=== PATIENT | male | born 1985 | race Caucasian/White ===

== ENCOUNTER 2017-01-10 00:20 | Emergency (ER) | payer OTHER ==
--- NOTE | 2017-01-10 00:29 | PDOC ---
History of Present Illness - General History Source: Patient Exam Limitations: No Limitations - History of Present Illness Initial Comments: 01/10/17 02:10 The patient is a 31 year old male with significant past medical history of asthma and polysubstance abuse (heroin and cocaine) who presents to the ED for overdose. Patient reports he has been sober for a period of time and prior to arrival he sniffed two bags of heroin. He was found by his brother. States last thing he remembers was his brother walking towards him and then woke up in the ER. Patient only has complaints of mild nausea, but no vomiting. The patient denies fever, chills, diaphoresis, cough, SOB, chest pain, palpitations, abdominal pain, and diarrhea. Allergies: haloperidol, haloperidol lactate Social History: No alcohol, tobacco, or drug use reported. Past Surgical History: LT orbital fracture 2011 PCP: Dr. Suzette Vizcaino <Gena Fernandez - Last Filed: 01/10/17 02:11> <Shyam Corea - Last Filed: 01/10/17 06:12> - General Chief Complaint: Overdose Stated Complaint: DRUG OD Past History <Gena Fernandez - Last Filed: 01/10/17 02:11> - Past Medical History Asthma: Yes Cardiac Disorders: No COPD: No Diabetes: No GI Disorders: No Disorders: No HTN: No Kidney Stones: No Suicide Attempt (Hx): No Seizures: Yes - Surgical History Abdominal Surgery: No Appendectomy: No Cardiac Surgery: No Cholecystectomy: No Gastric Stapling: No GI Surgery: No Lung Surgery: No Neurologic Surgery: Yes (LT ORBITAL FRACTURE 2011 - TRAUMA) Orthopedic Surgery: No - Psycho/Social/Smoking Cessation Hx Anxiety: No Suicidal Ideation: No Smoking Status: Yes Smoking History: Never smoked Have you smoked in the past 12 months: Yes Number of Cigarettes Smoked Daily: 20 'Breaking Loose' booklet given: 02/08/14 Hx Alcohol Use: No Drug/Substance Use Hx: No Substance Use Type: Cocaine, Heroin, Prescribed Hx Substance Use Treatment: Yes (attends [facility]) <Shyam Corea - Last Filed: 01/10/17 06:12> - Past Medical History Allergies/Adverse Reactions: Allergies Allergy/AdvReac Type Severity Reaction Status Date / Time haloperidol [From Haldol] AdvReac Severe Verified 01/10/17 04:36 haloperidol lactate AdvReac Severe Verified 01/10/17 04:36 [From Haldol] Review of Systems - Review of Systems Able to Perform ROS?: Yes Comments:: 01/10/17 02:10 GENERAL/CONSTITUTIONAL: No fever or chills. No weakness. HEAD, EYES, EARS, NOSE AND THROAT: No change in vision. No ear pain or discharge. No sore throat. CARDIOVASCULAR: No chest pain or shortness of breath. RESPIRATORY: No cough, wheezing, or hemoptysis. GASTROINTESTINAL: +nausea No vomiting, diarrhea or constipation. GENITOURINARY: No dysuria, frequency, or change in urination. MUSCULOSKELETAL: No joint or muscle swelling or pain. No neck or back pain. SKIN: No rash NEUROLOGIC: No headache, vertigo, loss of consciousness, or change in strength/ sensation. ENDOCRINE: No increased thirst. No abnormal weight change. HEMATOLOGIC/LYMPHATIC: No anemia, easy bleeding, or history of blood clots. ALLERGIC/IMMUNOLOGIC: No hives or skin allergy. <Gena Fernandez - Last Filed: 01/10/17 02:11> *Physical Exam - Vital Signs Last Vital Signs Temp Pulse Resp BP Pulse Ox 98.1 F 82 14 111/70 89 L 01/10/17 00:27 01/10/17 00:27 01/10/17 00:27 01/10/17 00:27 01/10/17 00:27 - Physical Exam Comments: 01/10/17 02:10 GENERAL: Awake, alert, and fully oriented, in no acute distress HEAD: No signs of trauma EYES: PERRLA, EOMI, sclera anicteric, conjunctiva clear ENT: Auricles normal inspection, hearing grossly normal, nares patent, oropharynx clear without exudates. Moist mucosa NECK: Normal ROM, supple, no lymphadenopathy, JVD, or masses LUNGS: Breath sounds equal, clear to auscultation bilaterally. No wheezes, and no crackles HEART: Regular rate and rhythm, normal S1 and S2, no murmurs, rubs or gallops ABDOMEN: Soft, nontender, normoactive bowel sounds. No guarding, no rebound. No masses EXTREMITIES: Normal range of motion, no edema. No clubbing or cyanosis. No cords, erythema, or tenderness NEUROLOGICAL: Cranial nerves II through XII grossly intact. Normal speech, normal gait SKIN: Warm, Dry, normal turgor, no rashes or lesions noted. <Gena Fernandez - Last Filed: 01/10/17 02:11> ED Treatment Course - Medications Given in the ED: ED Medications Discontinued Medications Generic Name Dose Route Start Last Admin Trade Name Tra PRN Reason Stop Dose Admin Ondansetron HCl 8 mg 01/10/17 01:54 01/10/17 01:57 Zofran Odt - SL 01/10/17 01:55 8 mg ONCE ONE Administration <Gena Fernandez - Last Filed: 01/10/17 02:11> *DC/Admit/Observation/Transfer - Attestations Scribe Attestion: 01/10/17 02:10 Documentation prepared by Gena Fernandez, acting as medical staff services manager for Shyam Corea MD, MD <Gena Fernandez - Last Filed: 01/10/17 02:11> - Discharge Dispostion Admit: No Decision to Admit order Date/Time: 01/10/17 06:09 <Shyam Corea - Last Filed: 01/10/17 06:12> Diagnosis at time of Disposition: Opiate overdose Qualifiers: Encounter type: initial encounter Injury intent: accidental or unintentional Qualified Code(s): T40.601A - Poisoning by unspecified narcotics, accidental ( unintentional), initial encounter - Discharge Dispostion Disposition: HOME Condition at time of disposition: Good - Referrals Referrals: Suzette Vizcaino [Primary Care Provider] - - Patient Instructions Additional Instructions: Please follow up with the PMD within the next 48 hours. Please seek help for your drug dependency.
[2017-01-10 00:30] VITALS: TEMP 98.1; BMI 33.4
[2017-01-10] MEDS ORDERED: ONDANSETRON *ODT* 4 MG TABLET SL ONE (01:54)
[2017-01-10] MEDS ORDERED: ONDANSETRON *ODT* 4 MG TABLET ONE (01:56)
[2017-01-10] MEDS ORDERED: CYCLOBENZAPRINE HCL 10 MG TABLET (FP) PO ONE (04:59)
[2017-01-10] MEDS ORDERED: CYCLOBENZAPRINE HCL 10 MG TABLET (FP) ONE (05:10)
[2017-01-10 06:22] VITALS: BP 123/80; PULSE 88
== END 2017-01-10 06:53 | disposition home or self-care (01) ==
LOC: JER 00:20
DX: T40.1X1A Poisoning by heroin, accidental (unintentional), initial encounter (principal); R11.0 Nausea; Y92.018 Other place in single-family (private) house as the place of occurrence of the external cause
CPT/HCPCS: 99282-25

== ENCOUNTER 2017-06-01 18:49 | Emergency (ER) | payer OTHER ==
[2017-06-01 18:54] VITALS: BP 110/50; PULSE 113; TEMP 98.8; BMI 32.8
--- NOTE | 2017-06-01 19:32 | PDOC ---
History of Present Illness - General Chief Complaint: Redness To Affected Area Stated Complaint: PAIN. ACUTE Time Seen by Provider: 06/01/17 19:23 History Source: Patient Exam Limitations: No Limitations - History of Present Illness Severity: Yes: mild Location: reports: none, extremities Past History - Travel Traveled outside of the country in the last 30 days: No Close contact w/someone who was outside of country & ill: No - Past Medical History Allergies/Adverse Reactions: Allergies Allergy/AdvReac Type Severity Reaction Status Date / Time haloperidol [From Haldol] AdvReac Severe Verified 06/01/17 18:54 haloperidol lactate AdvReac Severe Verified 06/01/17 18:54 [From Haldol] Asthma: Yes Cardiac Disorders: No COPD: No Diabetes: No GI Disorders: No Disorders: No HTN: No Kidney Stones: No Psychiatric Problems: Yes (ADHD) Suicide Attempt (Hx): No Seizures: Yes (DUE TO CLONOPIN WITHDRAWAL) - Surgical History Abdominal Surgery: No Appendectomy: No Cardiac Surgery: No Cholecystectomy: No Gastric Stapling: No GI Surgery: No Lung Surgery: No Neurologic Surgery: Yes (LT ORBITAL FRACTURE 2012 - TRAUMA) Orthopedic Surgery: No - Psycho/Social/Smoking Cessation Hx Anxiety: No Suicidal Ideation: No Smoking Status: Yes Smoking History: Current every day smoker Have you smoked in the past 12 months: Yes Number of Cigarettes Smoked Daily: 20 Information on smoking cessation initiated: Yes 'Breaking Loose' booklet given: 06/01/17 Hx Alcohol Use: No Drug/Substance Use Hx: No Substance Use Type: Marijuana Hx Substance Use Treatment: Yes (attends [facility]) Review of Systems - Review of Systems Able to Perform ROS?: Yes Is the patient limited French proficient: Yes Constitutional: Yes: Symptoms Reported, See HPI, Malaise. No: Fever, Loss of Appetite HEENTM: No: Symptoms Reported *Physical Exam - Vital Signs Last Vital Signs Temp Pulse Resp BP Pulse Ox 98.8 F 113 H 20 110/50 96 06/01/17 18:50 06/01/17 18:50 06/01/17 18:50 06/01/17 18:50 06/01/17 18:50
[2017-06-01] MEDS ORDERED: ACETAMINOPHEN 1000 MG/100 ML VIAL (NON FORMULARY) IVPB ONE ×2 (20:48→20:51)
[2017-06-01] MEDS ORDERED: ACETAMINOPHEN INJECTION 100 ML IVPB ONE (21:02)
[2017-06-01] MEDS ORDERED: CLINDAMYCIN 600MG PREMIX IVPB 50 ML IVPB ONE (21:24)
[2017-06-01] MEDS ORDERED: VANCOMYCIN 1,000 MG in DEXTROSE 5%-WATER - 250 ML IVPB ONE (21:24)
--- NOTE | 2017-06-01 21:37 | PDOC ---
History of Present Illness - History of Present Illness Initial Comments: 06/01/17 21:37 The patient is a 31 year old male with significant past medical history of asthma, HIV, former polysubstance abuse (4 months without use, currently in outpatient rehab) who presents to the ED for evaluation of a painful left forearm abscess for 3 days. The patient reports being seen at [facility] ED yesterday where he received IV antibiotics and checked out after having a miserable experience. He reports a recent admission at [facility] (accepted by Dr. Baron De Jesus, Hand Surgeon, as per the request of Dr. Vizcaino), and discharged on May 09 for an abscess on his proximal left thumb obtained after collecting wood for his fireplace. The patient denies fever, chills, diaphoresis, cough, SOB, chest pain, palpitations, abdominal pain, and diarrhea. Allergies: haloperidol, haloperidol lactate Social History: No alcohol, tobacco, or drug use reported. Past Surgical History: LT orbital fracture 2011 PCP: Dr. Suzette Vizcaino <Ese Jimenez - Last Filed: 06/01/17 21:37> <Alyssa Archer - Last Filed: 06/02/17 03:49> - General Chief Complaint: Redness To Affected Area Stated Complaint: PAIN. ACUTE Time Seen by Provider: 06/01/17 19:23 Past History <Ese Jimenez - Last Filed: 06/01/17 21:37> - Past Medical History Asthma: Yes Cardiac Disorders: No COPD: No Diabetes: No GI Disorders: No Disorders: No HTN: No Kidney Stones: No Psychiatric Problems: Yes (ADHD) Suicide Attempt (Hx): No Seizures: Yes (DUE TO CLONOPIN WITHDRAWAL) - Surgical History Abdominal Surgery: No Appendectomy: No Cardiac Surgery: No Cholecystectomy: No Gastric Stapling: No GI Surgery: No Lung Surgery: No Neurologic Surgery: Yes (LT ORBITAL FRACTURE 2011 - TRAUMA) Orthopedic Surgery: No - Psycho/Social/Smoking Cessation Hx Anxiety: No Suicidal Ideation: No Smoking Status: Yes Smoking History: Current every day smoker Have you smoked in the past 12 months: Yes Number of Cigarettes Smoked Daily: 20 Information on smoking cessation initiated: Yes 'Breaking Loose' booklet given: 06/01/17 Hx Alcohol Use: No Drug/Substance Use Hx: No Substance Use Type: Marijuana Hx Substance Use Treatment: Yes (attends [facility]) <ArcherAlyssa - Last Filed: 06/02/17 03:49> - Past Medical History Allergies/Adverse Reactions: Allergies Allergy/AdvReac Type Severity Reaction Status Date / Time haloperidol [From Haldol] AdvReac Severe Verified 06/02/17 00:02 haloperidol lactate AdvReac Severe Verified 06/02/17 00:02 [From Haldol] Home Medications: Ambulatory Orders Buprenorphine HCl/Naloxone HCl [Suboxone 8 mg-2 mg Sl Tablets] 1 tablet SL TID 06/01/17 Dextroamphetamine/Amphetamine [Adderall 5 mg Tablet] 5 mg PO ASDIR 06/01/17 Dextroamphetamine/Amphetamine [Adderall Xr 15 mg Capsule] 15 mg PO DAILY Emtricitabine/Tenofovir [Truvada] 1 tab PO DAILY 06/01/17 Raltegravir [Isentress -] 0 mg PO BID 06/01/17 Review of Systems - Review of Systems Able to Perform ROS?: Yes Comments:: 06/01/17 21:37 GENERAL/CONSTITUTIONAL: No fever or chills. No weakness. HEAD, EYES, EARS, NOSE AND THROAT: No change in vision. No ear pain or discharge. No sore throat. CARDIOVASCULAR: No chest pain or shortness of breath. RESPIRATORY: No cough, wheezing, or hemoptysis. GASTROINTESTINAL: No nausea, vomiting, diarrhea or constipation. GENITOURINARY: No dysuria, frequency, or change in urination. MUSCULOSKELETAL: No joint or muscle swelling or pain. No neck or back pain. SKIN: (+) painful abscess to left forearm. No rash NEUROLOGIC: No headache, vertigo, loss of consciousness, or change in strength/ sensation. ENDOCRINE: No increased thirst. No abnormal weight change. HEMATOLOGIC/LYMPHATIC: No anemia, easy bleeding, or history of blood clots. ALLERGIC/IMMUNOLOGIC: No hives or skin allergy. <Ese Jimenez - Last Filed: 06/01/17 21:37> *Physical Exam - Vital Signs Last Vital Signs Temp Pulse Resp BP Pulse Ox 98.8 F 113 H 20 110/50 96 06/01/17 18:50 06/01/17 18:50 06/01/17 18:50 06/01/17 18:50 06/01/17 18:50 - Physical Exam Comments: 06/01/17 21:39 GENERAL: Awake, alert, and fully oriented, in no acute distress HEAD: No signs of trauma EYES: PERRLA, EOMI, sclera anicteric, conjunctiva clear ENT: Auricles normal inspection, hearing grossly normal, nares patent, oropharynx clear without exudates. Moist mucosa NECK: Normal ROM, supple, no lymphadenopathy, JVD, or masses LUNGS: Breath sounds equal, clear to auscultation bilaterally. No wheezes, and no crackles HEART: Regular rate and rhythm, normal S1 and S2, no murmurs, rubs or gallops ABDOMEN: Soft, nontender, normoactive bowel sounds. No guarding, no rebound. No masses EXTREMITIES: Normal range of motion, no edema. No clubbing or cyanosis. No cords, erythema, or tenderness NEUROLOGICAL: Cranial nerves II through XII grossly intact. Normal speech, normal gait SKIN: (+) abscess to the center of the volar aspect of left forearm is 1.5 cm in diameter with surrounding 5cm area erythema. There is also an old, healing abscess cellulitis at lateral base of left thumb. Warm, Dry, normal turgor, <Ese Jimenez - Last Filed: 06/01/17 21:37> - Vital Signs Last Vital Signs Temp Pulse Resp BP Pulse Ox 98.8 F 113 H 20 110/50 96 06/01/17 18:50 06/01/17 18:50 06/01/17 18:50 06/01/17 18:50 06/01/17 18:50 <Alyssa Archer - Last Filed: 06/02/17 03:49> ED Treatment Course - RADIOLOGY Radiology Studies Ordered: Category Date Time Status CHEST X-RAY PORTABLE* [RAD] Stat Radiology 06/01/17 20:40 Ordered <Alyssa Archer - Last Filed: 06/02/17 03:49> Medical Decision Making - Medical Decision Making 06/01/17 20:38 Dr. Vizcaino ([phone]) was called via phone answering service at 20:38 and I was connected with the resident physician covering for Dr. Vizcaino at this time, Dr. Cararsco, at 20:41. The patients case was discussed and Dr. Carrasco states he will inform Dr. Vizcaino and have her call the ED. 06/01/17 21:06 Dr. Vizcaino called the ED to discuss this patients case. Dr. Vizcaino informed me that her last patient encounter with this patient was in mid-April before his admission to [facility]. She reports there was concern for compartment syndrome and had the orthopedic hand surgeon, Dr. Baron De Jesus, accept the patients admission since her privileges are only at [facility]. Dr. Vizcaino also states she does not know the patient to be an IV drug user. <Ese Jimenez - Last Filed: 06/01/17 21:37> - Medical Decision Making 06/02/17 03:45 Pt comes with abscess and cellulitis to his left forearm. He has HIV and takes Truvada and Isentress. Pt recently had a spider bite to his left hand/thumb and it resulted in a compartment syndrome. His PMD at the clinic in [place] sent him to [facility] for admission and treatment by ortho hand docs. Pt was hospitalized for a week in April and he was sent home with abx. Pt is on suboxone. He likely has MRSA and denies any skin popping of drugs as he states that he has been clean for years. 06/02/17 03:48 Pt refusing blood draw. He wants to go home and get his stuff and sign AMA and return later. <Alyssa Archer - Last Filed: 06/02/17 03:49> *DC/Admit/Observation/Transfer - Attestations Scribe Attestion: 06/01/17 21:40 Documentation prepared by Ese Jimenez, acting as medical practice assistant for Alyssa Archer MD <Ese Jimenez - Last Filed: 06/01/17 21:37> <Alyssa Archer - Last Filed: 06/02/17 03:49> Diagnosis at time of Disposition: Cellulitis - Discharge Dispostion Disposition: AGAINST MEDICAL ADVICE - Referrals Referrals: Suzette Vizcaino [Primary Care Provider] -
--- NOTE | 2017-06-02 03:30 | PN ---
Teaching Attending Note ATTENDING PHYSICIAN STATEMENT I saw and evaluated the patient. I reviewed the resident's note and discussed the case with the resident. I agree with the resident's findings and plan as documented. SUBJECTIVE: OBJECTIVE: ASSESSMENT AND PLAN:
--- NOTE | 2017-06-02 21:35 | EKG ---
Test Reason : Blood Pressure : / mmHG Vent. Rate : 083 BPM Atrial Rate : 083 BPM P-R Int : 170 ms QRS Dur : 084 ms QT Int : 392 ms P-R-T Axes : 068 058 028 degrees QTc Int : 460 ms NORMAL SINUS RHYTHM POSSIBLE LEFT ATRIAL ENLARGEMENT BORDERLINE ECG WHEN COMPARED WITH ECG OF 01-JUN-2017 21:36, NO SIGNIFICANT CHANGE WAS FOUND Confirmed by ELIESER NOBLE MD ([id number]) on 06/02/2017 9:35:39 PM Referred By: Confirmed By:ELIESER NOBLE MD
== END 2017-06-01 22:23 | disposition left against medical advice (07) ==
LOC: JER 18:49
DX: L03.114 Cellulitis of left upper limb (principal); J45.909 Unspecified asthma, uncomplicated; F90.9 Attention-deficit hyperactivity disorder, unspecified type; F17.210 Nicotine dependence, cigarettes, uncomplicated; F19.21 Other psychoactive substance dependence, in remission
CPT/HCPCS: 71010-TC; 93005; 93010; 99283-25

== ENCOUNTER 2017-06-01 23:32 | Inpatient (IN) | payer OTHER ==
[2017-06-02] MEDS ORDERED: CLINDAMYCIN 900 MG PREMIX IVPB 50 ML IVPB ONE ×3 (00:15→10:27)
--- NOTE | 2017-06-02 00:25 | PDOC ---
History of Present Illness - General Chief Complaint: Wound Infection Stated Complaint: INJURY History Source: Patient Exam Limitations: No Limitations - History of Present Illness Initial Comments: 06/02/17 00:17 Patient is a 31 HIV + on HAART, asthma, former polysubstance abuse drug free for 4 months, in outpatient rehab, c/o left arm pain and swelling x 3 days. States went to [facility] ED yesterday where he received IV antibiotics and admission was recommended, however he left after they tried to cut the abscess with no anesthesia. He thinks this current abscess is related to the prior spider bite for which he was admitted to [facility] on 04/27 to 05/03. Patient was seen in the this ED earlier today but quickly left AMA because he had business to take care of. He denies fever, chills, diaphoresis, cough, SOB , chest pain, palpitations, abdominal pain, and diarrhea. PMD: Dr. Vizcaino Allergies: haloperidol, haloperidol lactate Social History: No alcohol, (+) tobacco, h/o drug use on Suboxone. Past Surgical History: LT orbital fracture 2011 GENERAL/CONSTITUTIONAL: [No fever or chills. No weakness. No weight change.] HEAD, EYES, EARS, NOSE AND THROAT: [No change in vision. No ear pain or discharge. No sore throat.] CARDIOVASCULAR: [No chest pain or shortness of breath.] RESPIRATORY: [No cough, wheezing, or hemoptysis.] GASTROINTESTINAL: [No nausea, vomiting, diarrhea or constipation. No rectal bleeding.] GENITOURINARY: [No dysuria, frequency, or change in urination.] MUSCULOSKELETAL: [No joint or muscle swelling or pain. No neck or back pain.] SKIN: [(+) rash (-) easy bruising.] NEUROLOGIC: [No headache, vertigo, loss of consciousness, or loss of sensation.] PSYCHIATRIC: [No depression or anxiety.] ENDOCRINE: [No increased thirst. No abnormal weight change.] HEMATOLOGIC/LYMPHATIC: [No anemia, easy bleeding, or history of blood clots.] ALLERGIC/IMMUNOLOGIC: [No hives or skin allergy. No latex allergy.] GENERAL: [The patient is awake, alert, and fully oriented, in no acute distress. ] HEAD: [Normal with no signs of trauma.] EYES: [Pupils equal, round and reactive to light, extraocular movements intact, sclera anicteric, conjunctiva clear.] ENT: [Ears normal, nares patent, oropharynx clear without exudates. Moist mucous membranes.] NECK: [Normal range of motion, supple without lymphadenopathy, JVD, or masses.] LUNGS: [Breath sounds equal, clear to auscultation bilaterally. No wheezes, and no crackles.] HEART: [Regular rate and rhythm, normal S1 and S2 without murmur, rub.] ABDOMEN: [Soft, nontender, normoactive bowel sounds. No guarding, no rebound. No masses.] EXTREMITIES: [Normal range of motion, swelling over the no edema. No clubbing or cyanosis. No cords, erythema, or tenderness.] NEUROLOGICAL: [Cranial nerves II through XII grossly intact. Normal speech, normal gait.] PSYCH: [Normal mood, normal affect.] SKIN: (+) Warmth to the left arm, (+) swelling, (+) abscess left forearm with a firm swelling centrally, Dry, normal turgor, Past History - Past Medical History Allergies/Adverse Reactions: Allergies Allergy/AdvReac Type Severity Reaction Status Date / Time haloperidol [From Haldol] AdvReac Severe Verified 06/02/17 00:02 haloperidol lactate AdvReac Severe Verified 06/02/17 00:02 [From Haldol] Home Medications: Ambulatory Orders Buprenorphine HCl/Naloxone HCl [Suboxone 8 mg-2 mg Sl Tablets] 1 tablet SL TID 06/01/17 Dextroamphetamine/Amphetamine [Adderall 5 mg Tablet] 5 mg PO ASDIR 06/01/17 Dextroamphetamine/Amphetamine [Adderall Xr 15 mg Capsule] 15 mg PO DAILY Emtricitabine/Tenofovir [Truvada] 1 tab PO DAILY 06/01/17 Raltegravir [Isentress -] 0 mg PO BID 06/01/17 Asthma: Yes Cardiac Disorders: No COPD: No Diabetes: No GI Disorders: No Disorders: No HTN: No Kidney Stones: No Psychiatric Problems: Yes (ADHD) Suicide Attempt (Hx): No Seizures: Yes (DUE TO CLONOPIN WITHDRAWAL) - Surgical History Abdominal Surgery: No Appendectomy: No Cardiac Surgery: No Cholecystectomy: No Gastric Stapling: No GI Surgery: No Lung Surgery: No Neurologic Surgery: Yes (LT ORBITAL FRACTURE 2011 - TRAUMA) Orthopedic Surgery: No - Psycho/Social/Smoking Cessation Hx Anxiety: No Suicidal Ideation: No Smoking Status: Yes Smoking History: Current every day smoker Have you smoked in the past 12 months: Yes Number of Cigarettes Smoked Daily: 20 Information on smoking cessation initiated: No 'Breaking Loose' booklet given: 06/01/17 Hx Alcohol Use: Yes Drug/Substance Use Hx: Yes Substance Use Type: Cocaine, Heroin, Prescribed Hx Substance Use Treatment: Yes (attends [facility]) *Physical Exam - Vital Signs Last Vital Signs Temp Pulse Resp BP Pulse Ox 97.9 F 100 H 14 149/81 96 06/02/17 00:02 06/02/17 00:02 06/02/17 00:02 06/02/17 00:02 06/02/17 00:02 ED Treatment Course - LABORATORY CBC & Chemistry Diagram: 06/02/17 00:50 06/02/17 00:50 - RADIOLOGY Radiology Studies Ordered: Category Date Time Status FOREARM- LEFT [RAD] Stat Radiology 06/02/17 00:10 Ordered Medical Decision Making - Medical Decision Making 06/02/17 00:22 Patient is a 31 HIV + on HAART, asthma, former polysubstance abuse drug free for 4 months, in outpatient rehab, c/o left arm pain and swelling x 3 days consistent with abscess with cellultiis. Will get labs, xray forearm and admit for IV Antibx to cover MRSA. 06/02/17 03:21 Patient received IV Clindamycin 600 mg IV. Seen by Dr. Guerrero and will admit to the hospital for continued IV antibiotics and for surgical drainage of the abscess. Patient has not given Drug screen *DC/Admit/Observation/Transfer Diagnosis at time of Disposition: Cellulitis, Abscess of forearm, left - Discharge Dispostion Condition at time of disposition: Stable Admit: Yes
[2017-06-02 01:02] LABS: BASOPHIL 0.6 % (0-2.0); EOSINOPHIL 6.5 % (0-4.5); MCH 29.4 pg (25.7-33.7); MCHC 34.3 g/dl (32.0-35.9); MEAN CELL VOLUME 85.9 fl (80-96); MEAN PLT VOLUME 8.8 fl (7.5-11.1); NEUTROPHILS 63.3 % (42.8-82.8); PLATELET COUNT 242 K/MM3 (134-434); RDW 13.9 % (11.9-15.9)
[2017-06-02] MEDS ORDERED: traMADol HCL 50 MG TABLET ONE (01:25)
[2017-06-02] MEDS ORDERED: ACETAMINOPHEN INJECTION 100 ML IVPB ONE (01:25)
[2017-06-02] MEDS ORDERED: traMADol HCL 50 MG TABLET PO ONE (01:27)
[2017-06-02] MEDS ORDERED: ACETAMINOPHEN 1000 MG/100 ML VIAL (NON FORMULARY) IVPB ONE (01:27)
[2017-06-02 01:34] LABS: ALBUMIN 4.2 g/dl (3.4-5.0); ALK PHOS 99 U/L (45-117); ANION GAP 11 (8-16); BILIRUBIN,TOTAL 0.9 mg/dL (0.2-1.0); CO2 27 mmol/L (21-32); CREATININE 0.9 mg/dL (0.7-1.3); GLUCOSE,RANDOM 100 mg/dL (74-106); SGOT/AST 30 U/L (15-37); SGPT/ALT 29 U/L (12-78); TOT PROT 7.3 g/dl (6.4-8.2)
[2017-06-02] MEDS ORDERED: LIDOCAINE HCL 1%, 10 MG/ML (20ML VIAL) ONE (02:11)
[2017-06-02] MEDS ORDERED: morphine CARPU-JECT 2 MG/1 ML DISP.SYRIN IVPUSH ONE (02:40)
--- NOTE | 2017-06-02 03:35 | PN ---
Teaching Attending Note Name of Resident: Shaun Nava ATTENDING PHYSICIAN STATEMENT I saw and evaluated the patient. I reviewed the resident's note and discussed the case with the resident. I agree with the resident's findings and plan as documented. SUBJECTIVE: 31 yo M with pmhx significant for polysubstance abuse (heroine/cocaine, on Suboxone), Opiod abuse, Asthma, HIV on HAART, who presents with abcess of Left Forearm. States he was admitted at [facility] in April for abscess on is L. thumb from a spider bite. He was d/c'd on 05/09 from [facility]. He went to [facility] yesterday, for the same problem. He recieved IV abx yesterday, but left the hospital bc he states they wanted to drain his arm without anesthesia. No chest pain, pressure, or shortness of breath. No N/V/D. No fevers or chills. OBJECTIVE: Physical: Vital Signs Period Temp Pulse Resp BP Sys/[place] Pulse Ox Last 24 Hr 97.9 F 100 14 149/81 96 GEN:NAD, Resting in bed, speaking full sentences HEENT: NCAT, PERRL, Throat without erythema or exudates CARD: RRR S1, S2 RESP: CTAB ABD: BSX4, NTD to palpation EXT: L. Forearm abscess 11X5 with surrounding erythema, pulses intact CBCD WBC 8.0 K/mm3 (4.0-10.0) 06/02/17 00:50 RBC 4.68 M/mm3 (4.00-5.60) 06/02/17 00:50 Hgb 13.8 GM/dL (11.7-16.9) 06/02/17 00:50 Hct 40.2 % (35.4-49) D 06/02/17 00:50 MCV 85.9 fl (80-96) 06/02/17 00:50 MCHC 34.3 g/dl (32.0-35.9) 06/02/17 00:50 RDW 13.9 % (11.9-15.9) D 06/02/17 00:50 Plt Count 242 K/MM3 (134-434) 06/02/17 00:50 MPV 8.8 fl (7.5-11.1) 06/02/17 00:50 CMP Sodium 137 mmol/L (136-145) 06/02/17 00:50 Potassium 4.0 mmol/L (3.5-5.1) 06/02/17 00:50 Chloride 99 mmol/L (98-107) 06/02/17 00:50 Carbon Dioxide 27 mmol/L (21-32) 06/02/17 00:50 Anion Gap 11 (8-16) 06/02/17 00:50 BUN 12 mg/dL (7-18) D 06/02/17 00:50 Creatinine 0.9 mg/dL (0.7-1.3) 06/02/17 00:50 Creat Clearance w eGFR > 60 (>60) 06/02/17 00:50 Random Glucose 100 mg/dL (74-106) 06/02/17 00:50 Calcium 9.0 mg/dL (8.5-10.1) 06/02/17 00:50 Total Bilirubin 0.9 mg/dL (0.2-1.0) D 06/02/17 00:50 AST 30 U/L (15-37) D 06/02/17 00:50 ALT 29 U/L (12-78) D 06/02/17 00:50 Alkaline Phosphatase 99 U/L (45-117) D 06/02/17 00:50 Total Protein 7.3 g/dl (6.4-8.2) 06/02/17 00:50 Albumin 4.2 g/dl (3.4-5.0) 06/02/17 00:50 L. Forearm Xray: Pending EKG: Pending ASSESSMENT AND PLAN: 31 yo M w hx. of polysubstance abuse, HIV, current smoker presents with L. Arm Abscess 1.) L. Forearm Abscess - Sx. Consult for I&D - Cx wound - C/W Clindamycin - NPO - Coags, Type & Screen - Pain control 2.) Hx. Of Polysubstance abuse - Obtain Subuxone record in AM - In outpt. Rehab 3.) Ashtma - Nebs prn 4.) Current Smoker - Advised Smoking Cessation - Nicotine Patch 5.) Dvt Ppx - Low Risk - SCD Place in Med-Sx
[2017-06-02 04:23] LABS: URINE MARIJUANA THC POSITIVE ng/ml (CUTOFF=50)
[2017-06-02] MEDS ORDERED: ALBUTEROL SO4 2.5/IPRATROPIUM 0.5 INH SOL 3 ML VIAL.NEB. NEB PRN (04:47)
--- NOTE | 2017-06-02 05:05 | HP ---
CHIEF COMPLAINT: Abscess PCP: Dr. Vizcaino HISTORY OF PRESENT ILLNESS: 31 year old M with pmh of asthma, HIV on haart, and polysubstance abuse (on suboxone and in outpt therapy) presents with left forearm abscess x 3 days. Patient went to [facility] yesterday and left AMA after receiving IV abx. Patient states "They cut it without anasthesia and it was too painful." Patient has had a prior abscess on his L thumb in April, where he was admitted to [facility] by a hand surgeon and tx with IV abx for 6 days. Per patient, last IV heroine use was in February. Patient denies fever, chills, chest pain, sob, GI symptoms. Patient does state he has had trouble to pee, stating it took him 3 hours to give urine in the ED. ER course was notable for: (1)cbc/bmp (2)Left forearm xray (3)EKG Recent Travel: denies PAST MEDICAL HISTORY: as per hpi PAST SURGICAL HISTORY: Left orbital fracture in 2011 Social History: Smoking: Current smoker Alcohol: denies Drugs: +HEROIN, COCAINE, MARIJUANA (ALL USED WITHIN LAST WEEK) Family History: Allergies haloperidol [From Haldol] Adverse Reaction (Severe, Verified 06/02/17 00:02) haloperidol lactate [From Haldol] Adverse Reaction (Severe, Verified 06/02/17 00 :02) HOME MEDICATIONS: Home Medications Medication Instructions Recorded Buprenorphine HCl/Naloxone HCl 1 tablet SL TID 06/01/17 [Suboxone 8 mg-2 mg Sl Tablets] Dextroamphetamine/Amphetamine 5 mg PO ASDIR 06/01/17 [Adderall 5 mg Tablet] Dextroamphetamine/Amphetamine 15 mg PO DAILY 06/01/17 [Adderall Xr 15 mg Capsule] Emtricitabine/Tenofovir [Truvada] 1 tab PO DAILY 06/01/17 Raltegravir [Isentress -] 0 mg PO BID 06/01/17 REVIEW OF SYSTEMS CONSTITUTIONAL: Absent: fever, chills, diaphoresis, generalized weakness, malaise, loss of appetite, weight change HEENT: Absent: rhinorrhea, nasal congestion, throat pain, throat swelling, difficulty swallowing, mouth swelling, ear pain, eye pain, visual changes CARDIOVASCULAR: Absent: chest pain, syncope, palpitations, irregular heart rate, lightheadedness , peripheral edema RESPIRATORY: Absent: cough, shortness of breath, dyspnea with exertion, orthopnea, wheezing, stridor, hemoptysis GASTROINTESTINAL: Absent: abdominal pain, abdominal distension, nausea, vomiting, diarrhea, constipation, melena, hematochezia GENITOURINARY: Absent: dysuria, frequency, urgency, hesitancy, hematuria, flank pain, genital pain MUSCULOSKELETAL: Absent: myalgia, arthralgia, joint swelling, back pain, neck pain SKIN: Absent: ABSCESS, rash, itching, pallor HEMATOLOGIC/IMMUNOLOGIC: Absent: easy bleeding, easy bruising, lymphadenopathy, frequent infections ENDOCRINE: Absent: unexplained weight gain, unexplained weight loss, heat intolerance, cold intolerance NEUROLOGIC: Absent: headache, focal weakness or paresthesias, dizziness, unsteady gait, seizure, mental status changes, bladder or bowel incontinence PSYCHIATRIC: Absent: anxiety, depression, suicidal or homicidal ideation, hallucinations. PHYSICAL EXAMINATION Vital Signs - 24 hr 06/02/17 00:02 Temperature 97.9 F Pulse Rate 100 H Respiratory 14 Rate Blood Pressure 149/81 O2 Sat by Pulse 96 Oximetry (%) GENERAL: Awake, alert, and fully oriented, in no acute distress. Disheveled HEAD: Normal with no signs of trauma. EYES: Extraocular movements intact, sclera anicteric, conjunctiva clear. No lid lag. NECK: Normal range of motion, supple without lymphadenopathy, JVD, or masses. LUNGS: Breath sounds equal, clear to auscultation bilaterally. +scattered inspiratory wheezes. No crackles. No accessory muscle use. HEART: Tachycardic, Regular rhythm, normal S1 and S2 without murmur, rub or gallop. ABDOMEN: Soft, nontender, not distended, normoactive bowel sounds, no guarding, no rebound, no masses. No hepatomegaly or splenomegaly. MUSCULOSKELETAL: Normal range of motion at all joints. No bony deformities or tenderness. No CVA tenderness. UPPER EXTREMITIES: 2+ pulses, warm, well-perfused. No cyanosis. No clubbing. No peripheral edema. 11x9.5 cm indurated erythematous abscess on Left forearm. Small healing wound on left thumb from previous abscess LOWER EXTREMITIES: 2+ pulses, warm, well-perfused. No calf tenderness. No peripheral edema. NEUROLOGICAL: Cranial nerves II-XII intact. Normal speech. PSYCHIATRIC: Cooperative. Good eye contact. Appropriate mood and affect. SKIN: Warm, dry, normal turgor, no rashes or lesions noted, normal capillary refill. Laboratory Results - last 24 hr 06/02/17 06/02/17 06/02/17 00:50 00:50 04:00 WBC 8.0 RBC 4.68 Hgb 13.8 Hct 40.2 D MCV 85.9 MCH 29.4 MCHC 34.3 RDW 13.9 D Plt Count 242 MPV 8.8 Neutrophils % 63.3 Lymphocytes % 18.4 D Monocytes % 11.2 H Eosinophils % 6.5 H D Basophils % 0.6 Sodium 137 Potassium 4.0 Chloride 99 Carbon Dioxide 27 Anion Gap 11 BUN 12 D Creatinine 0.9 Creat Clearance w eGFR > 60 Random Glucose 100 Calcium 9.0 Total Bilirubin 0.9 D AST 30 D ALT 29 D Alkaline Phosphatase 99 D Total Protein 7.3 Albumin 4.2 Opiates Screen Positive Methadone Screen Negative Barbiturate Screen Negative Phencyclidine Screen Negative Ur Amphetamines Screen Negative MDMA (Ecstasy) Screen Negative Benzodiazepines Screen Positive Cocaine Screen Positive U Marijuana (THC) Screen Positive ASSESSMENT/PLAN: 31 y.o. M with pmh of polysubstance abuse (heroine, cocaine, marijuana), asthma , and HIV on haart presented with left forearm abscess #Left forearm abscess -Clindamycin 900 mg q8hr -PT/PTT/INR, Type/Screen pending -NPO -Surgery consulted for possible I&D, obtain wound culture #Asthma -Controlled -Duonebs prn q4h #Polysubstance abuse -Suboxone records needed -Patient currently in outpatient rehab 5 days/week #Hx of smoking -Nicotine patch prn #FEN/GI -None -WNL -NPO #PPx -Dvt- scds -GI- not indicated #Dispo -Admit med surg -IV abx, surgery consult pending Visit type - Emergency Visit Emergency Visit: Yes ED Registration Date: 06/02/17 Care time: The patient presented to the Emergency Department on the above date and was hospitalized for further evaluation of their emergent condition. - New Patient This patient is new to me today: Yes Date on this admission: 06/02/17 - Critical Care Critical Care patient: No
[2017-06-02 05:37] VITALS: TEMP 98.6
[2017-06-02] MEDS ORDERED: LORazepam 1 MG TABLET PO ONE (06:29)
[2017-06-02] MEDS ORDERED: LORazepam 0.5 MG TABLET ONE (06:46)
[2017-06-02] MEDS ORDERED: HALOPERIDOL LACTATE 5 MG/ML IM ONE (07:29)
[2017-06-02] MEDS ORDERED: morphine CARPU-JECT 4 MG/1 ML DISP.SYRIN IVPUSH ONE (07:32)
[2017-06-02] MEDS ORDERED: morphine CARPU-JECT 10 MG/1 ML DISP.SYRIN ONE (07:33)
[2017-06-02] MEDS ORDERED: LORazepam 2 MG/ML SDV VIAL ONE (07:33)
[2017-06-02 08:40] LABS: BASOPHIL 0.7 % (0-2.0); EOSINOPHIL 5.8 % (0-4.5); MCH 29.2 pg (25.7-33.7); MCHC 34.1 g/dl (32.0-35.9); MEAN CELL VOLUME 85.6 fl (80-96); MEAN PLT VOLUME 8.3 fl (7.5-11.1); NEUTROPHILS 68.2 % (42.8-82.8); PLATELET COUNT 240 K/MM3 (134-434); RDW 13.7 % (11.9-15.9); WHITE BLOOD COUNT 8.5 K/mm3 (4.0-10.0)
[2017-06-02 08:58] LABS: ANION GAP 9 (8-16); BILIRUBIN,TOTAL 0.7 mg/dL (0.2-1.0); CALCIUM 9.2 mg/dL (8.5-10.1); CO2 26 mmol/L (21-32); CREATININE 0.9 mg/dL (0.7-1.3); GLUCOSE,RANDOM 94 mg/dL (74-106); INR 1.2 (0.82-1.09); PROTHROMBIN TIME (PATIENT) 13.3 SEC (9.98-11.88); SGOT/AST 27 U/L (15-37); SGPT/ALT 31 U/L (12-78); TOT PROT 7.2 g/dl (6.4-8.2)
[2017-06-02 08:59] LABS: ALK PHOS 97 U/L (45-117)
[2017-06-02 09:00] LABS: ACTIVATED PTT 36.3 SECONDS (26.9-34.4)
[2017-06-02] MEDS ORDERED: NICOTINE 7 MG/24 HOURS TOPICAL PATCH TD SCH (10:00)
[2017-06-02] MEDS ORDERED: RALTEGRAVIR POTASSIUM 400 MG TAB PO SCH (10:00)
[2017-06-02] MEDS ORDERED: EMTRICITABINE 200MG/TENOFOVIR 300MG PO SCH (10:00)
[2017-06-02] MEDS ORDERED: CLINDAMYCIN 900 MG PREMIX IVPB 50 ML IVPB SCH (10:00)
[2017-06-02 10:38] VITALS: BP 125/104; PULSE 89
[2017-06-02 10:48] VITALS: BMI 34.4
[2017-06-02] MEDS ORDERED: LORATADINE 10 MG TABLET PO ONE (11:11)
[2017-06-02] MEDS ORDERED: LORATADINE 10 MG TABLET ONE (12:36)
[2017-06-02] MEDS ORDERED: METHYLPHENIDATE HCL 5 MG TABLET PO SCH (13:15)
[2017-06-02] MEDS ORDERED: METHYLPHENIDATE HCL 5 MG TABLET PO ONE (13:19)
--- NOTE | 2017-06-02 14:47 | PN ---
Progress Note (short form) - Note Progress Note: surgery consult for possible left forearm abscess previously drained at [facility]. Will evaluate for possible I&d under local anesthesia. Agree with abx and warm compresses.
[2017-06-02] MEDS ORDERED: SODIUM CHLORIDE 1,000 ML IV STA (14:58)
--- NOTE | 2017-06-02 15:05 | PN ---
Physical Exam: SUBJECTIVE: Patient seen and examined OBJECTIVE: Vital Signs Period Temp Pulse Resp BP Sys/Carranza Pulse Ox Last 24 Hr 89-101 17-18 125-150/62-104 96-99 GENERAL: The patient is awake, alert, and fully oriented, in no acute distress. HEAD: Normal with no signs of trauma. EYES: PERRL, extraocular movements intact, sclera anicteric, conjunctiva clear. No ptosis. ENT: Ears normal, nares patent, oropharynx clear without exudates, moist mucous membranes. NECK: Trachea midline, full range of motion, supple. LUNGS: Breath sounds equal, clear to auscultation bilaterally, no wheezes, no crackles, no accessory muscle use. HEART: Regular rate and rhythm, S1, S2 without murmur, rub or gallop. ABDOMEN: Soft, nontender, nondistended, normoactive bowel sounds, no guarding, no rebound, no hepatosplenomegaly, no masses. EXTREMITIES: 2+ pulses, warm, well-perfused, no edema. NEUROLOGICAL: Cranial nerves II through XII grossly intact. Normal speech, gait not observed. PSYCH: Normal mood, normal affect. SKIN: Warm, dry, normal turgor, no rashes or lesions noted Laboratory Results - last 24 hr 06/02/17 06/02/17 06/02/17 04:00 08:25 08:25 WBC 8.5 RBC 4.56 Hgb 13.3 Hct 39.0 MCV 85.6 MCH 29.2 MCHC 34.1 RDW 13.7 Plt Count 240 MPV 8.3 Neutrophils % 68.2 Lymphocytes % 14.8 Monocytes % 10.5 H Eosinophils % 5.8 H Basophils % 0.7 INR 1.20 H PTT (Actin FS) 36.3 H Sodium Potassium Chloride Carbon Dioxide Anion Gap BUN Creatinine Creat Clearance w eGFR Random Glucose Calcium Total Bilirubin AST ALT Alkaline Phosphatase Total Protein Albumin Opiates Screen Positive Methadone Screen Negative Barbiturate Screen Negative Phencyclidine Screen Negative Ur Amphetamines Screen Negative MDMA (Ecstasy) Screen Negative Benzodiazepines Screen Positive Cocaine Screen Positive U Marijuana (THC) Screen Positive Blood Type Antibody Screen 06/02/17 06/02/17 08:25 08:25 WBC RBC Hgb Hct MCV MCH MCHC RDW Plt Count MPV Neutrophils % Lymphocytes % Monocytes % Eosinophils % Basophils % INR PTT (Actin FS) Sodium 135 L Potassium 3.8 Chloride 100 Carbon Dioxide 26 Anion Gap 9 BUN 12 Creatinine 0.9 Creat Clearance w eGFR > 60 Random Glucose 94 Calcium 9.2 Total Bilirubin 0.7 D AST 27 ALT 31 Alkaline Phosphatase 97 Total Protein 7.2 Albumin 4.0 Opiates Screen Methadone Screen Barbiturate Screen Phencyclidine Screen Ur Amphetamines Screen MDMA (Ecstasy) Screen Benzodiazepines Screen Cocaine Screen U Marijuana (THC) Screen Blood Type O POSITIVE Antibody Screen Negative Active Medications Generic Name Dose Route Start Last Admin Trade Name Freq PRN Reason Stop Dose Admin Albuterol/Ipratropium 1 amp 06/02/17 04:47 Duoneb - NEB Q4H PRN ASTHMA Emtricitabine/Tenofovir 1 tab 06/02/17 10:00 06/02/17 10:30 Truvada PO 1 tab DAILY MARIXA Administration Clindamycin Phosphate 50 mls @ 100 mls/hr 06/02/17 10:00 06/02/17 10:30 Cleocin 900 Mg Premix Ivpb - IVPB 100 mls/hr Q8H-IV MARIXA Administration Nicotine 7 mg 06/02/17 10:00 06/02/17 10:25 Nicoderm Patch - TD Not Given DAILY MARIXA Raltegravir 400 mg 06/02/17 10:00 06/02/17 10:30 Isentress - PO 400 mg BID MARIXA Administration ASSESSMENT/PLAN: 31 y.o. M with pmh of polysubstance abuse (heroine, cocaine, marijuana), asthma , and HIV on haart presented with left forearm abscess #Left forearm abscess -Clindamycin 900 mg q8hr; Day 2 -Surgery: for I&D under local anesthesia, obtain wound culture -patient does not meet SIRS criteria #HIV on HAART -Truvada daily -Raltegravir 400 mg TID #Polysubstance abuse -Patient on suboxone TID #Asthma -Controlled -Duonebs prn q4h #Hx of smoking -Nicotine patch prn #ADD -patient to bring in own medications #FEN/GI -No fluids indicated at this time -monitor lytes -regular diet #PPx -Dvt- scds -GI- not indicated #Dispo -Admitted to med surg for IV abx, I&D by surgery
--- NOTE | 2017-06-02 17:17 | PN ---
Teaching Attending Note Name of Resident: Cuong Mckeon ATTENDING PHYSICIAN STATEMENT I saw and evaluated the patient. I reviewed the resident's note and discussed the case with the resident. I agree with the resident's findings and plan as documented. SUBJECTIVE:went to evaluate this patient around noon. pt stated he was unable to be seen at this time as he had to use the restroom. Notified few hours later pt eloped when being transported upstairs. pt returned to ER and asked to be transported to his room, was informed he had to go through triage again which pt refused. IV site was removed. pt was never properly evaluated or counseled.
--- NOTE | 2017-06-02 18:17 | DS ---
Physical Exam: SUBJECTIVE: Patient seen and examined at bedside. Patient was combative in the ER prior to examination prompting security response. Patient was complaining of pain in his forearm and requesting his home medications. OBJECTIVE: Vital Signs Period Temp Pulse Resp BP Sys/Carranza Pulse Ox Last 24 Hr 89-101 17-18 125-150/62-104 96-99 PHYSICAL EXAM GENERAL: The patient is awake, alert, and fully oriented, in no acute distress. HEAD: Normal with no signs of trauma. EYES: extraocular movements intact, sclera anicteric, conjunctiva clear. NECK: Trachea midline, full range of motion, supple. LUNGS: Breath sounds equal, clear to auscultation bilaterally, no wheezes, no crackles, no accessory muscle use. HEART: Regular rate and rhythm, S1, S2 without murmur, rub or gallop. ABDOMEN: Soft, nontender, nondistended, normoactive bowel sounds, no guarding, no rebound. EXTREMITIES: 2+ pulses, warm, well-perfused, no edema. There is an erythematous , warm, indurated and firm region of the left forearm with a raised area in the center which was exquisitely tender to palpation. NEUROLOGICAL: Cranial nerves II through X grossly intact. Normal speech, gait not observed. PSYCH: Normal mood, normal affect. SKIN: Warm, dry, normal turgor, no rashes or lesions noted. LABS Laboratory Results - last 24 hr 06/02/17 06/02/17 06/02/17 04:00 08:25 08:25 WBC 8.5 RBC 4.56 Hgb 13.3 Hct 39.0 MCV 85.6 MCH 29.2 MCHC 34.1 RDW 13.7 Plt Count 240 MPV 8.3 Neutrophils % 68.2 Lymphocytes % 14.8 Monocytes % 10.5 H Eosinophils % 5.8 H Basophils % 0.7 INR 1.20 H PTT (Actin FS) 36.3 H Sodium Potassium Chloride Carbon Dioxide Anion Gap BUN Creatinine Creat Clearance w eGFR Random Glucose Calcium Total Bilirubin AST ALT Alkaline Phosphatase Total Protein Albumin Opiates Screen Positive Methadone Screen Negative Barbiturate Screen Negative Phencyclidine Screen Negative Ur Amphetamines Screen Negative MDMA (Ecstasy) Screen Negative Benzodiazepines Screen Positive Cocaine Screen Positive U Marijuana (THC) Screen Positive Blood Type Antibody Screen 06/02/17 06/02/17 08:25 08:25 WBC RBC Hgb Hct MCV MCH MCHC RDW Plt Count MPV Neutrophils % Lymphocytes % Monocytes % Eosinophils % Basophils % INR PTT (Actin FS) Sodium 135 L Potassium 3.8 Chloride 100 Carbon Dioxide 26 Anion Gap 9 BUN 12 Creatinine 0.9 Creat Clearance w eGFR > 60 Random Glucose 94 Calcium 9.2 Total Bilirubin 0.7 D AST 27 ALT 31 Alkaline Phosphatase 97 Total Protein 7.2 Albumin 4.0 Opiates Screen Methadone Screen Barbiturate Screen Phencyclidine Screen Ur Amphetamines Screen MDMA (Ecstasy) Screen Benzodiazepines Screen Cocaine Screen U Marijuana (THC) Screen Blood Type O POSITIVE Antibody Screen Negative HOSPITAL COURSE: Date of Admission:06/02/17 31 year old M with pmh of asthma, HIV on haart, and polysubstance abuse (on suboxone and in outpt therapy) presents with left forearm abscess x 3 days. Patient went to [facility] yesterday and left AMA after receiving IV abx. Patient states "They cut it without anasthesia and it was too painful." Patient has had a prior abscess on his L thumb in April, where he was admitted to [facility] by a hand surgeon and tx with IV abx for 6 days. Per patient, last IV heroine use was in February. Patient denies fever, chills, chest pain, sob, GI symptoms. In the ED, the patient was afebrile and tachycardic. His labs were unremarkable. An xray of the left forearm showed soft tissue swelling and no bony involvement. The patient was admitted for I&D of his abscess and treatment with IV antibiotics. He was treated with clindamycin and truvada. Dr. Leon with surgery was consulted. In the ED while waiting for transfer to an inpatient floor, the patient was verbally abusive to the ED staff. During the course of his transfer upstairs, the patient eloped. He returned to the ED later asking to be taken to his room. When he was informed that he needed to be triaged again in order to be admitted, the patient refused. His IV site was removed and he left the premises. Patient was never properly evaluated or counseled. Date of Discharge: 06/02/17 Minutes to complete discharge: 30 Discharge Summary Reason For Visit: CELLULITIS,ABSCESS LEFT FOREARM Current Active Problems Abscess of forearm, left (Acute) Cellulitis (Acute) Condition: Stable - Home Medications Comprehensive Discharge Medication List: Ambulatory Orders Buprenorphine HCl/Naloxone HCl [Suboxone 8 mg-2 mg Sl Tablets] 1 tablet SL TID 06/01/17 Dextroamphetamine/Amphetamine [Adderall Xr 15 mg Capsule] 15 mg PO DAILY Emtricitabine/Tenofovir [Truvada] 1 tab PO DAILY 06/01/17 Raltegravir [Isentress -] 0 mg PO BID 06/01/17 This patient is new to me today: Yes Date on this admission: 06/02/17 Emergency Visit: Yes ED Registration Date: 06/02/17 Care time: The patient presented to the Emergency Department on the above date and was hospitalized for further evaluation of their emergent condition. Critical Care patient: No - Discharge Referral Referred to [facility] Med P.C.: No
== END 2017-06-02 13:54 | disposition left against medical advice (07) | DRG 383 ==
LOC: JER 23:32 → JERBED 06-02 03:23
PROVIDERS: ADMIT Internal Medicine; ATTEND Internal Medicine
DX: L03.114 Cellulitis of left upper limb (principal); J45.909 Unspecified asthma, uncomplicated; F17.210 Nicotine dependence, cigarettes, uncomplicated; F90.8 Attention-deficit hyperactivity disorder, other type; F11.10 Opioid abuse, uncomplicated; F19.10 Other psychoactive substance abuse, uncomplicated; F14.10 Cocaine abuse, uncomplicated; F12.10 Cannabis abuse, uncomplicated; L02.414 Cutaneous abscess of left upper limb; Z21 Asymptomatic human immunodeficiency virus [HIV] infection status
CPT/HCPCS: 36415; 73090-TC-LT; 80053; 80307; 85025; 85610; 85730; 86850; 86900; 86901; 87040; 99283-25

== ENCOUNTER 2017-06-06 17:01 | Inpatient (IN) | payer OTHER ==
[2017-06-06] MEDS ORDERED: CLINDAMYCIN IVPB 300 MG in DEXTROSE 5%-WATER - 48 ML IVPB ONE (18:36)
--- NOTE | 2017-06-06 18:42 | PDOC ---
History of Present Illness - General Chief Complaint: Abscess Boil Stated Complaint: WOUND Time Seen by Provider: 06/06/17 18:18 History Source: Patient Exam Limitations: No Limitations - History of Present Illness Initial Comments: 06/06/17 18:37 31-year-old male presents to the ED with complaints of continual abscess to his left forearm now with new erupting went on his right forearm and right bicep. Patient denies fever, chills but states mild nausea. Patient with history of HIV , polysubstance abuse, and recently was admitted at another hospital for IV antibiotics due to right hand wound that required incision and drainage. Patient was seen here a few days ago but left since he states nothing "was being done "patient states did receive IV antibiotics but did not receive anything upon discharge. Patient states was camping the last few days and feels this aggravated his symptoms. Timing/Duration: constant Severity: mild Associated Symptoms: reports: nausea/vomiting Past History - Travel Traveled outside of the country in the last 30 days: No Close contact w/someone who was outside of country & ill: No - Past Medical History Allergies/Adverse Reactions: Allergies Allergy/AdvReac Type Severity Reaction Status Date / Time haloperidol [From Haldol] AdvReac Severe Verified 06/06/17 17:15 haloperidol lactate AdvReac Severe Verified 06/06/17 17:15 [From Haldol] Home Medications: Ambulatory Orders Buprenorphine HCl/Naloxone HCl [Suboxone 8 mg-2 mg Sl Tablets] 1 tablet SL TID 06/01/17 Dextroamphetamine/Amphetamine [Adderall Xr 15 mg Capsule] 15 mg PO DAILY Emtricitabine/Tenofovir [Truvada] 1 tab PO DAILY 06/01/17 Raltegravir [Isentress -] 0 mg PO BID 06/01/17 Asthma: Yes Cardiac Disorders: No COPD: No Diabetes: No GI Disorders: No Disorders: No HTN: No Kidney Stones: No Psychiatric Problems: Yes (ADHD) Suicide Attempt (Hx): No Seizures: Yes (DUE TO CLONOPIN WITHDRAWAL) - Surgical History Abdominal Surgery: No Appendectomy: No Cardiac Surgery: No Cholecystectomy: No Gastric Stapling: No GI Surgery: No Lung Surgery: No Neurologic Surgery: Yes (LT ORBITAL FRACTURE 2012 - TRAUMA) Orthopedic Surgery: No - Psycho/Social/Smoking Cessation Hx Anxiety: No Suicidal Ideation: No Smoking Status: Yes Smoking History: Current every day smoker Have you smoked in the past 12 months: Yes Number of Cigarettes Smoked Daily: 20 Information on smoking cessation initiated: No 'Breaking Loose' booklet given: 06/01/17 Hx Alcohol Use: Yes Drug/Substance Use Hx: Yes ([id number]) Substance Use Type: Cocaine, Heroin, Marijuana, Prescribed Hx Substance Use Treatment: Yes (attends [facility]) Patient Lives Alone: No Lives with/in: parents Review of Systems - Review of Systems Able to Perform ROS?: Yes Constitutional: No: Symptoms Reported HEENTM: No: Symptoms Reported Respiratory: No: Symptoms reported Cardiac (ROS): No: Symptoms Reported ABD/GI: No: Symptoms Reported : No: Symptoms Reported Musculoskeletal: Yes: Muscle Pain Integumentary: Yes: Erythema, Lumps Neurological: No: Symptoms reported Endocrine: No: Symptoms Reported Hematologic/Lymphatic: No: Symptoms Reported *Physical Exam - Vital Signs Last Vital Signs Temp Pulse Resp BP Pulse Ox 98.4 F 64 19 108/55 95 06/06/17 17:15 06/06/17 17:15 06/06/17 17:15 06/06/17 17:15 06/06/17 17:15 - Physical Exam General Appearance: Yes: Nourished, Appropriately Dressed. No: Apparent Distress HEENT: positive: EOMI, JAZMYNE. negative: Pale Conjunctivae Neck: positive: Supple Respiratory/Chest: positive: Lungs Clear, Normal Breath Sounds. negative: Respiratory Distress, Accessory Muscle Use Cardiovascular: positive: Regular Rhythm, Regular Rate. negative: Murmur Gastrointestinal/Abdominal: positive: Soft. negative: Tenderness Extremity: positive: Normal Capillary Refill. negative: Pedal Edema Integumentary: positive: Erythema, Swelling (noted 4-5 cm circular raised erythematous firm mass to inner aspect of leftt forearm. numerous scabs to left arm and 2 small papules to right bicep. Noted 2 x 2 cm firm raised erythamatous mass to right forearm.) Neurologic: positive: Motor Strength 5/5 (ambulatory). negative: Normal Mood/ Affect (anxious and flighty) ED Treatment Course - LABORATORY CBC & Chemistry Diagram: 06/07/17 10:30 06/07/17 10:30 - RADIOLOGY Radiology Studies Ordered: Category Date Time Status DUPLEX VASCUL US-1 ARM [US] Stat Ultrasound 06/06/17 18:34 Ordered Medical Decision Making - Medical Decision Making 06/06/17 18:44 Patient history of HIV presenting with continual abscess to the left forearm now with no erupting papules to the left forearm. No palpable fluctuance with mild increased redness and warmth to the inner aspect of right forearm. Wound culture was collected after lifting the scab with minimal drainage exuding. Septic workup was initiated along with IV clindamycin and ultrasound for evaluation of depth to evaluate the depth of the wound. Patient is to be admitted to Dr. Go. Patient received IV clindamycin here 4 days ago but left AMA involving security to to his behavior. *DC/Admit/Observation/Transfer Diagnosis at time of Disposition: Abscess of forearm, left - Discharge Dispostion Condition at time of disposition: Stable
[2017-06-06 19:14] LABS: BASOPHIL 0.5 % (0-2.0); EOSINOPHIL 6.4 % (0-4.5); MCH 28.9 pg (25.7-33.7); MEAN PLT VOLUME 8.5 fl (7.5-11.1); NEUTROPHILS 63.4 % (42.8-82.8); PLATELET COUNT 297 K/MM3 (134-434); RDW 13.7 % (11.9-15.9); WHITE BLOOD COUNT 6.7 K/mm3 (4.0-10.0)
[2017-06-06 19:51] LABS: ALBUMIN 3.6 g/dl (3.4-5.0); ALK PHOS 80 U/L (45-117); ANION GAP 5 (8-16); BILIRUBIN,TOTAL 0.5 mg/dL (0.2-1.0); CALCIUM 8.8 mg/dL (8.5-10.1); CO2 35 mmol/L (21-32); CREATININE 0.9 mg/dL (0.7-1.3); GLUCOSE,RANDOM 100 mg/dL (74-106); SGPT/ALT 34 U/L (12-78); TOT PROT 6.6 g/dl (6.4-8.2)
[2017-06-06 19:52] LABS: SGOT/AST 30 U/L (15-37)
--- NOTE | 2017-06-06 20:55 | PDOC ---
*Physical Exam - Vital Signs Last Vital Signs Temp Pulse Resp BP Pulse Ox 98.4 F 64 20 108/55 100 06/06/17 17:15 06/06/17 17:15 06/06/17 18:10 06/06/17 17:15 06/06/17 18:10 <Tavon Uribe - Last Filed: 06/06/17 20:53> - Vital Signs Last Vital Signs Temp Pulse Resp BP Pulse Ox 98.4 F 64 20 108/55 100 06/06/17 17:15 06/06/17 17:15 06/06/17 18:10 06/06/17 17:15 06/06/17 18:10 - Physical Exam Comments: 06/06/17 21:19 Pt seen by Midlevel Provider under my direct supervision. Documentation has been prepared under my direction and personally reviewed by me in its entirety. I attest that this document accurately reflects all work, treatment, procedures and medical decision-making performed. I agree with plan as outlined by Midlevel Provider. <Jaya Zambrano I - Last Filed: 06/06/17 21:21> ED Treatment Course - LABORATORY CBC & Chemistry Diagram: 06/06/17 19:05 06/06/17 19:05 - ADDITIONAL ORDERS Additional order review: Laboratory Results 06/06/17 06/06/17 19:05 19:05 Sodium 136 Potassium 4.0 Chloride 96 L Carbon Dioxide 35 H D Anion Gap 5 L BUN 10 Creatinine 0.9 Creat Clearance w eGFR > 60 Random Glucose 100 Lactic Acid 1.0 Calcium 8.8 Total Bilirubin 0.5 D AST 30 ALT 34 Alkaline Phosphatase 80 Total Protein 6.6 Albumin 3.6 06/06/17 19:05 RBC 4.57 MCV 85.0 MCHC 34.0 RDW 13.7 MPV 8.5 Neutrophils % 63.4 Lymphocytes % 21.4 D Monocytes % 8.3 Eosinophils % 6.4 H Basophils % 0.5 - Medications Given in the ED: ED Medications Discontinued Medications Generic Name Dose Route Start Last Admin Trade Name Freq PRN Reason Stop Dose Admin Clindamycin Phosphate 300 mg/ 50 mls @ 100 mls/hr 06/06/17 18:36 06/06/17 20:07 Dextrose IVPB 06/06/17 19:05 100 mls/hr ONCE ONE Administration <Tavon Uribe - Last Filed: 06/06/17 20:53> - LABORATORY CBC & Chemistry Diagram: 06/06/17 19:05 06/06/17 19:05 - ADDITIONAL ORDERS Additional order review: Laboratory Results 06/06/17 06/06/17 19:05 19:05 Sodium 136 Potassium 4.0 Chloride 96 L Carbon Dioxide 35 H D Anion Gap 5 L BUN 10 Creatinine 0.9 Creat Clearance w eGFR > 60 Random Glucose 100 Lactic Acid 1.0 Calcium 8.8 Total Bilirubin 0.5 D AST 30 ALT 34 Alkaline Phosphatase 80 Total Protein 6.6 Albumin 3.6 06/06/17 19:05 RBC 4.57 MCV 85.0 MCHC 34.0 RDW 13.7 MPV 8.5 Neutrophils % 63.4 Lymphocytes % 21.4 D Monocytes % 8.3 Eosinophils % 6.4 H Basophils % 0.5 - Medications Given in the ED: ED Medications Discontinued Medications Generic Name Dose Route Start Last Admin Trade Name Freq PRN Reason Stop Dose Admin Clindamycin Phosphate 300 mg/ 50 mls @ 100 mls/hr 06/06/17 18:36 06/06/17 20:07 Dextrose IVPB 06/06/17 19:05 100 mls/hr ONCE ONE Administration <Jaya Zambrano I - Last Filed: 06/06/17 21:21> Progress Note - Progress Note Progress Note: Left forearm: ventral abscess Betadine prep 1% lidocaine=2cc I&D #10 blade Culture purulent drainage pack with 1/4" packing gauze kerlix <Tavon Uribe - Last Filed: 06/06/17 20:53> *DC/Admit/Observation/Transfer - Discharge Dispostion Admit: Yes <Tavon Uribe - Last Filed: 06/06/17 20:53> <Jaya Zambrano I - Last Filed: 06/06/17 21:21> Diagnosis at time of Disposition: Abscess of forearm, left - Discharge Dispostion Condition at time of disposition: Stable
[2017-06-06] MEDS ORDERED: PIPERACILLIN/TAZOB 4.5 GM/100 ML PRE-DOCKED IVPB ONE (20:58)
[2017-06-06] MEDS ORDERED: PIPERACILLIN/TAZOB 4.5 GM 100 ML IVPB ONE (21:02)
[2017-06-06] MEDS ORDERED: LIDOCAINE HCL 1%, 10 MG/ML (20ML VIAL) ONE (21:07)
[2017-06-06] MEDS ORDERED: ACETAMINOPHEN 325 MG TABLET (FP) PO PRN (21:30)
[2017-06-06] MEDS ORDERED: VANCOMYCIN 1 GRAM (PRE-DOCKED) 250 ML IVPB ONE (22:36)
[2017-06-06] MEDS: VANCOMYCIN 1,000 MG in DEXTROSE 5%-WATER - 250 ML IVPB SCH (22:40)
[2017-06-06] MEDS ORDERED: diphenhydrAMINE HCL 25 MG CAPSULE (FP) PO ONE (23:32)
[2017-06-07 02:46] VITALS: BMI 22.1
--- NOTE | 2017-06-07 08:31 | HP ---
Admitting History and Physical - Primary Care Physician PCP: Rachael Go - Admission Chief Complaint: FOREARM ABSCESSES History of Present Illness: 31 Y/O MALE WITH + HIV, ASTHMA, DEPRESSION/ANXIETY PRESENTING WITH ABSCESS ALONG HIS FOREARM THAT HAVE BEEN TREATED WITH IV ABX AND PO ABX OVER PAST RECENT TIME (UNKNOWN). PATIENT DOES NOT WANT TO DISCUSS HIS HIV STATUS, TREATED IN [place] WITH AN INFECTIOUS DISEASE SPECIALIST. History Source: Patient Limitations to Obtaining History: Uncooperative - Past Medical History Pulmonary: Yes: Asthma Infectious Disease: Yes: HIV Psych: Yes: Anxiety, Depression Dermatology: Yes: Cellulitis - Smoking History Smoking history: Current every day smoker Have you smoked in the past 12 months: Yes Aproximately how many cigarettes per day: 20 - Alcohol/Substance Use Hx Alcohol Use: Yes Home Medications - Allergies Allergies/Adverse Reactions: Allergies Allergy/AdvReac Type Severity Reaction Status Date / Time haloperidol [From Haldol] AdvReac Severe Verified 06/06/17 17:15 haloperidol lactate AdvReac Severe Verified 06/06/17 17:15 [From Haldol] - Home Medications Home Medications: Ambulatory Orders Buprenorphine HCl/Naloxone HCl [Suboxone 8 mg-2 mg Sl Tablets] 1 tablet SL TID 06/01/17 Dextroamphetamine/Amphetamine [Adderall Xr 15 mg Capsule] 15 mg PO DAILY Emtricitabine/Tenofovir [Truvada] 1 tab PO DAILY 06/01/17 Raltegravir [Isentress -] 0 mg PO BID 06/01/17 Review of Systems - Review of Systems Constitutional: reports: Other Eyes: reports: No Symptoms HENT: reports: No Symptoms Neck: reports: No Symptoms Cardiovascular: reports: No Symptoms Respiratory: reports: No Symptoms Gastrointestinal: reports: No Symptoms Genitourinary: reports: No Symptoms Musculoskeletal: reports: No Symptoms Integumentary: reports: Erythema (ARMS LEFT WORSE), Rash, Wound Neurological: reports: Pre-Existing Deficit Endocrine: reports: No Symptoms Hematology/Lymphatic: reports: No Symptoms Psychiatric: reports: Depression Physical Examination Vital Signs: Vital Signs Temperature 98.6 F 06/07/17 06:00 Pulse Rate 45 L 06/07/17 06:00 Respiratory Rate 18 06/07/17 06:00 Blood Pressure 137/70 06/07/17 06:00 O2 Sat by Pulse Oximetry (%) 96 06/06/17 22:00 Constitutional: Yes: Mild Distress Eyes: Yes: WNL HENT: Yes: WNL Neck: Yes: WNL Cardiovascular: Yes: WNL Respiratory: Yes: WNL, Wheezes Gastrointestinal: Yes: WNL Renal/: Yes: WNL Musculoskeletal: Yes: WNL Extremities: Yes: Erythema Edema: Yes Peripheral Pulses WNL: Yes Integumentary: Yes: Erythema, Rash Wound/Incision: Yes: Dressing Dry and Intact Neurological: Yes: Other ...Motor Strength: LUE (DRESSING INTACT) Psychiatric: Yes: Other Problem List - Problems (1) Abscess of forearm, left Code(s): L02.414 - CUTANEOUS ABSCESS OF LEFT UPPER LIMB (2) Cellulitis Code(s): L03.90 - CELLULITIS, UNSPECIFIED (3) Musculoskeletal pain Code(s): M79.1 - MYALGIA (4) HIV disease Code(s): B20 - HUMAN IMMUNODEFICIENCY VIRUS [HIV] DISEASE (5) Asthma Code(s): J45.909 - UNSPECIFIED ASTHMA, UNCOMPLICATED Qualifiers: Asthma severity: moderate persistent Asthma complication type: uncomplicated Qualified Code(s): J45.40 - Moderate persistent asthma, uncomplicated Assessment/Plan ASTHMA INHALERS/DUONEB HIV CD4 AND VIRAL LOAD REFUSED IV ABX DETOX DR KIRK EUGENE FOR SUBAQUONE THERAPY AWAIT CULTURES
[2017-06-07] MEDS ORDERED: ALBUTEROL SO4 2.5/IPRATROPIUM 0.5 INH SOL 3 ML VIAL.NEB. NEB PRN (08:36)
[2017-06-07] MEDS: LORazepam 1 MG TABLET PO PRN ×2 (09:18→18:53)
[2017-06-07] MEDS: hydrOXYzine HCL 25 MG TABLET (FP) PO PRN ×2 (09:19→18:53)
[2017-06-07] MEDS ORDERED: NICOTINE 21 MG/24 HOURS TOPICAL PATCH TD SCH (10:00)
[2017-06-07] MEDS: BUDESONIDE/FORMETEROL FUMARATE 80/4.5 mcg INHALER IH SCH ×2 (10:35→21:44)
[2017-06-07 11:04] LABS: MCH 28.4 pg (25.7-33.7); MEAN CELL VOLUME 86.1 fl (80-96); MEAN PLT VOLUME 8.5 fl (7.5-11.1); PLATELET COUNT 262 K/MM3 (134-434); RDW 13.8 % (11.9-15.9); WHITE BLOOD COUNT 6.5 K/mm3 (4.0-10.0)
[2017-06-07 11:35] LABS: ALBUMIN 3.2 g/dl (3.4-5.0); ANION GAP 3 (8-16); CALCIUM 8.6 mg/dL (8.5-10.1); CO2 34 mmol/L (21-32); CREATININE 0.8 mg/dL (0.7-1.3); GLUCOSE,RANDOM 152 mg/dL (74-106); SGOT/AST 16 U/L (15-37); SGPT/ALT 29 U/L (12-78); TOT PROT 6.1 g/dl (6.4-8.2)
[2017-06-07 11:39] LABS: ALK PHOS 70 U/L (45-117); BILIRUBIN,TOTAL 0.3 mg/dL (0.2-1.0)
[2017-06-07] MEDS: VANCOMYCIN 1,000 MG in DEXTROSE 5%-WATER - 250 ML IVPB SCH (12:04)
[2017-06-07 12:21] LABS: ERYTHROCYTE SEDIMENTATION RATE 7 mm/hr (0-10)
--- NOTE | 2017-06-07 12:48 | PN ---
Progress Note (short form) - Note Progress Note: ID consult dictated imp/reccd 3rd recent admission to [facility] seen 06/01 in ED, left ama returned 06/02, admitted and left AMA all the above for left forearm abscess now returns with same complaints no fevers does not wish to discuss HIV status or care left forearm abscess drained in ED he has a small abscess on right arm as well [facility] finger/hand infection- discharged 05/03 on po antibiiotics denies IVDU (not for years) still smokes heroin and cocaine- last 3 days ago +cigarette use forearm abscesses substance use hiv + continue vancomycin and zosyn f/u cultures continue art surgery to see for abscess drainage he should f/u with his HIV specialist and PMD after discharge Problem List - Problems (1) Abscess of forearm, left Code(s): L02.414 - CUTANEOUS ABSCESS OF LEFT UPPER LIMB (2) HIV disease Code(s): B20 - HUMAN IMMUNODEFICIENCY VIRUS [HIV] DISEASE (3) Polysubstance abuse Code(s): F19.10 - OTHER PSYCHOACTIVE SUBSTANCE ABUSE, UNCOMPLICATED
[2017-06-07] MEDS ORDERED: PIPERACILLIN/TAZOB 4.5 GM/100 ML PRE-DOCKED IVPB SCH (13:00)
[2017-06-07] MEDS: VANCOMYCIN 1,250 MG in DEXTROSE 5%-WATER - 250 ML IVPB SCH (14:05)
[2017-06-07] MEDS: PIPERACILLIN/TAZOBACTAM 4.5 GM VIAL IVPB SCH (17:15)
[2017-06-07] MEDS ORDERED: PT OWN MED DRAWER 7, Y5N ONE (21:39)
[2017-06-07 22:08] LABS: URINE APPEARANCE SLCLOUDY; URINE BILIRUBIN NEGATIVE (NEGATIVE); URINE BLOOD NEGATIVE (NEGATIVE); URINE COLOR LTYELLOW; URINE GLUCOSE (UA) NEGATIVE (NEGATIVE); URINE KETONE NEGATIVE (NEGATIVE); URINE LEUK ESTERASE NEGATIVE (NEGATIVE); URINE NITRITE NEGATIVE (NEGATIVE); URINE PROTEIN NEGATIVE (NEGATIVE)
[2017-06-08] MEDS ORDERED: PT OWN MED DRAWER 7, Y5N ONE ×2 (00:44→11:12)
[2017-06-08] MEDS: VANCOMYCIN 1,250 MG in DEXTROSE 5%-WATER - 250 ML IVPB SCH (01:06)
[2017-06-08] MEDS: PIPERACILLIN/TAZOBACTAM 4.5 GM VIAL IVPB SCH ×2 (01:34→11:30)
[2017-06-08] MEDS: LORazepam 1 MG TABLET PO PRN (04:53)
[2017-06-08] MEDS ORDERED: HYDROmorphone HCL CARPU-JECT 1 MG/1 ML DISP.SYRIN IVPB ONE (05:45)
[2017-06-08] MEDS ORDERED: LORazepam 1 MG TABLET PO PRN (10:17)
--- NOTE | 2017-06-08 10:23 | PN ---
Progress Note, Physician Chief Complaint: AWAKE ALERT C/O DIARRHEA FROM WITHDRAWELS - Current Medication List Current Medications: Active Medications Acetaminophen (Tylenol -) 650 mg PO Q6H PRN PRN Reason: FEVER OR PAIN Albuterol/Ipratropium (Duoneb -) 1 amp NEB Q6H PRN PRN Reason: SHORTNESS OF BREATH Budesonide/Formoterol Fumarate (Symbicort 80/4.5mcg -) 2 puff IH BID [facility] Last Admin: 06/07/17 21:44 Dose: 2 puff Clonidine (Catapres -) 0.1 mg PO BID [facility] Hydroxyzine HCl (Atarax -) 25 mg PO TID PRN PRN Reason: FOR ITCHING Last Admin: 06/07/17 18:53 Dose: 25 mg Vancomycin HCl 1,250 mg/ (Dextrose) 250 mls @ 166.667 mls/hr IVPB BID@0100, 1300 MARIXA PRN Reason: Protocol Last Admin: 06/08/17 01:06 Dose: 166.667 mls/hr Lorazepam (Ativan -) 1 mg PO Q6H PRN PRN Reason: ANXIETY Nicotine (Nicoderm Patch -) 21 mg TD DAILY [facility] Last Admin: 06/07/17 12:00 Dose: Not Given Piperacillin Sod/Tazobactam Sod (Zosyn -) 4.5 gm IVPB Q8H-IV [facility] Last Admin: 06/08/17 01:34 Dose: 4.5 gm - Objective Vital Signs: Vital Signs Temperature 98.1 F 06/08/17 06:00 Pulse Rate 75 06/08/17 06:00 Respiratory Rate 20 06/08/17 06:00 Blood Pressure 117/58 06/08/17 06:00 O2 Sat by Pulse Oximetry (%) 95 06/07/17 21:00 Constitutional: Yes: Mild Distress Eyes: Yes: WNL HENT: Yes: WNL Neck: Yes: WNL Cardiovascular: Yes: WNL Respiratory: Yes: WNL Gastrointestinal: Yes: WNL Genitourinary: Yes: WNL Musculoskeletal: Yes: Back Pain, Muscle Pain Extremities: Yes: WNL Edema: No Peripheral Pulses WNL: Yes Integumentary: Yes: Erythema, Rash Wound/Incision: Yes: Dressing Dry and Intact Neurological: Yes: WNL ...Motor Strength: LLE, RLE Psychiatric: Yes: Agitated Labs: CBC, BMP 06/07/17 10:30 06/07/17 10:30 Problem List - Problems (1) Abscess of forearm, left Code(s): L02.414 - CUTANEOUS ABSCESS OF LEFT UPPER LIMB (2) Cellulitis Code(s): L03.90 - CELLULITIS, UNSPECIFIED (3) Musculoskeletal pain Code(s): M79.1 - MYALGIA (4) HIV disease Code(s): B20 - HUMAN IMMUNODEFICIENCY VIRUS [HIV] DISEASE (5) Asthma Code(s): J45.909 - UNSPECIFIED ASTHMA, UNCOMPLICATED Qualifiers: Asthma severity: moderate persistent Asthma complication type: uncomplicated Qualified Code(s): J45.40 - Moderate persistent asthma, uncomplicated Assessment/Plan START KLONOPIN BID FOR WITHDRAWELS ATIVAN PRN ATARAX PRN I SPOKE WITH DR KIRK EUGENE AND HE WILL SEE THE PATIENT TODAY AND NEED TO DC DILAUDID IF HE WANTS TO START SUBOXONE. IV ABX CULTURES PENDING I AND D WITH VASC SX IF NEEDED
[2017-06-08] MEDS ORDERED: cloNIDine HCL 0.1 MG TABLET PO SCH (10:30)
--- NOTE | 2017-06-08 11:29 | PN ---
Progress Note (short form) - Note Progress Note: calmer today no complaints Vital Signs Period Temp Pulse Resp BP Sys/[place] Pulse Ox Last 24 Hr 97.2 F-98.1 F 50-75 18-20 117-122/56-58 95 cor-rrr lungs clear abd soft,nt ext open lesion left forearm, small right forearm abscess CBC, BMP 06/07/17 10:30 06/07/17 10:30 Microbiology 06/06/17 18:46 Abscess Gram Stain - Final 06/06/17 18:46 Arm - Left Forearm Gram Stain - Final 06/06/17 19:05 Blood - Peripheral Venous Blood Culture - Preliminary NO GROWTH OBTAINED AFTER 24 HOURS, INCUBATION TO CONTINUE FOR 4 DAYS. 06/06/17 19:00 Blood - Peripheral Venous Blood Culture - Preliminary NO GROWTH OBTAINED AFTER 24 HOURS, INCUBATION TO CONTINUE FOR 4 DAYS. a/p forearm abscesses substance use hiv + continue vancomycin and zosyn f/u cultures continue art surgery to see for abscess drainage he should f/u with his HIV specialist and PMD after discharge Problem List - Problems (1) Abscess of forearm, left Code(s): L02.414 - CUTANEOUS ABSCESS OF LEFT UPPER LIMB (2) HIV disease Code(s): B20 - HUMAN IMMUNODEFICIENCY VIRUS [HIV] DISEASE (3) Polysubstance abuse Code(s): F19.10 - OTHER PSYCHOACTIVE SUBSTANCE ABUSE, UNCOMPLICATED
[2017-06-08] MEDS ORDERED: METHADONE HCL 10 MG TABLET (FOR DETOX USE ONLY) PO ONE ×2 (11:31→23:00)
[2017-06-08] MEDS ORDERED: diazePAM 5 MG TABLET PO PRN (11:31)
--- NOTE | 2017-06-08 11:31 | CONSULT ---
Consult - Past Medical History Pulmonary: Yes: Asthma Infectious Disease: Yes: HIV Psych: Yes: Anxiety, Depression Dermatology: Yes: Cellulitis - Alcohol/Substance Use Hx Alcohol Use: Yes - Smoking History Smoking history: Current every day smoker Have you smoked in the past 12 months: Yes Aproximately how many cigarettes per day: 20 Home Medications - Allergies Allergies/Adverse Reactions: Allergies Allergy/AdvReac Type Severity Reaction Status Date / Time haloperidol [From Haldol] AdvReac Severe Verified 06/06/17 17:15 haloperidol lactate AdvReac Severe Verified 06/06/17 17:15 [From Haldol] - Home Medications Home Medications: Ambulatory Orders Buprenorphine HCl/Naloxone HCl [Suboxone 8 mg-2 mg Sl Tablets] 1 tablet SL TID 06/01/17 Dextroamphetamine/Amphetamine [Adderall Xr 15 mg Capsule] 15 mg PO DAILY Emtricitabine/Tenofovir [Truvada] 1 tab PO DAILY 06/01/17 Raltegravir [Isentress -] 0 mg PO BID 06/01/17 Physical Exam Vital Signs: Vital Signs Temperature 98.1 F 06/08/17 06:00 Pulse Rate 75 06/08/17 06:00 Respiratory Rate 20 06/08/17 06:00 Blood Pressure 117/58 06/08/17 06:00 O2 Sat by Pulse Oximetry (%) 95 06/07/17 21:00 Labs: CBC, BMP 06/07/17 10:30 06/07/17 10:30 Assessment/Plan Vascular Surgery 31-year-old male presents to the ED with complaints of continual abscess to his left forearm now with new erupting went on his right forearm and right bicep. Patient denies fever, chills but states mild nausea. Patient with history of HIV , polysubstance abuse, and recently was admitted at another hospital for IV antibiotics due to right hand wound that required incision and drainage. Patient was seen here a few days ago but left since he states nothing "was being done "patient states did receive IV antibiotics but did not receive anything upon discharge. Patient states was camping the last few days and feels this aggravated his symptoms. Timing/Duration: constant Severity: mild Associated Symptoms: reports: nausea/vomiting Past History - Travel Traveled outside of the country in the last 30 days: No Close contact w/someone who was outside of country & ill: No - Past Medical History Allergies/Adverse Reactions: Allergies Allergy/AdvReac Type Severity Reaction Status Date / Time haloperidol [From Haldol] AdvReac Severe Verified 06/06/17 17:15 haloperidol lactate AdvReac Severe Verified 06/06/17 17:15 [From Haldol] Home Medications: Ambulatory Orders Buprenorphine HCl/Naloxone HCl [Suboxone 8 mg-2 mg Sl Tablets] 1 tablet SL TID 06/01/17 Dextroamphetamine/Amphetamine [Adderall Xr 15 mg Capsule] 15 mg PO DAILY Emtricitabine/Tenofovir [Truvada] 1 tab PO DAILY 06/01/17 Raltegravir [Isentress -] 0 mg PO BID 06/01/17 PE head - NC/At Lung - cTA heart - RRR Abd - soft,nt,nd ext - left forearm -- abscess, drained in ER Not tender to touch, squeezed area and could not get any pus out. Right forearm -- with erythema , possible abscess. A/P Bl forearm abscess. IV antibiotics warm compresses to both forearms. Will follow closeley if pt needs right forearm abscess drainage. Not ready as of yet. Rufino Ha DO
[2017-06-08] MEDS: BUDESONIDE/FORMETEROL FUMARATE 80/4.5 mcg INHALER IH SCH (11:33)
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
[2017-06-08] MEDS ORDERED: METHADONE HCL 10 MG TABLET PO ONE (12:30)
[2017-06-08 15:39] VITALS: BP 135/72; PULSE 88; TEMP 97.7
--- NOTE | 2017-06-08 19:32 | DS ---
Physical Examination Vital Signs: Vital Signs Temperature 97.7 F 06/08/17 15:38 Pulse Rate 88 06/08/17 15:38 Respiratory Rate 18 06/08/17 15:38 Blood Pressure 135/72 06/08/17 15:38 O2 Sat by Pulse Oximetry (%) 96 06/08/17 09:00 Constitutional: Yes: Moderate Distress Labs: CBC, BMP 06/07/17 10:30 06/07/17 10:30 Discharge Summary Reason For Visit: ABSCESS OF LEFT FOREARM Hospital Course: SIGNED AMA UNDERSTANDS RISK Condition: Stable - Instructions Referrals: Suzette Vizcaino [Primary Care Provider] - - Home Medications Comprehensive Discharge Medication List: Ambulatory Orders Buprenorphine HCl/Naloxone HCl [Suboxone 8 mg-2 mg Sl Tablets] 1 tablet SL TID 06/01/17 Dextroamphetamine/Amphetamine [Adderall Xr 15 mg Capsule] 15 mg PO DAILY Emtricitabine/Tenofovir [Truvada] 1 tab PO DAILY 06/01/17 Raltegravir [Isentress -] 0 mg PO BID 06/01/17
[2017-06-09] MEDS ORDERED: METHADONE HCL 5 MG TABLET (FOR DETOX USE ONLY) PO ONE (10:00)
[2017-06-10] MEDS ORDERED: METHADONE HCL 10 MG TABLET (FOR DETOX USE ONLY) PO ONE (10:00)
[2017-06-11] MEDS ORDERED: METHADONE HCL 5 MG TABLET (FOR DETOX USE ONLY) PO ONE (06:00)
== END 2017-06-08 16:00 | disposition left against medical advice (07) | DRG 894 ==
LOC: JER 17:01 → JERFT 17:01 → JERBED 20:55 → J8W 23:29
PROVIDERS: ADMIT Family Medicine; ATTEND Family Medicine
PROC: 0X9 Anatomical Regions, Upper Extremities, Drainage (ICD-10-PCS; principal; 2017-06-06)
DX: L02.414 Cutaneous abscess of left upper limb (principal); B20 Human immunodeficiency virus [HIV] disease; R19.7 Diarrhea, unspecified; J45.40 Moderate persistent asthma, uncomplicated; F19.10 Other psychoactive substance abuse, uncomplicated; F17.210 Nicotine dependence, cigarettes, uncomplicated
CPT/HCPCS: 36415; 73560-TC-LT; 73560-TC-RT; 80053; 81003; 83036; 83605; 85025; 85027; 85651; 87040; 87070; 87186; 87205; 93971; 99285-25

== ENCOUNTER 2017-06-17 09:26 | Inpatient (IN) | payer OTHER ==
[2017-06-17 10:35] VITALS: BMI 29.2
--- NOTE | 2017-06-17 13:25 | HP ---
Admission [facility] - [facility] Chief Complaint: REHAB TX FOR COCAINE AND MARIJUANA DEPENDENCE ON SUBOXONE MAINTENANCE. Allergies/Adverse Reactions: Allergies Allergy/AdvReac Type Severity Reaction Status Date / Time No Known Drug Allergies Allergy Verified 06/17/17 16:37 haloperidol [From Haldol] AdvReac Severe Verified 06/17/17 11:43 haloperidol lactate AdvReac Severe Verified 06/17/17 11:43 [From Haldol] History of Present Illness: 31 Y/O MALE WITH A HX OF COCAINE AND MARIJUANA DEPENDENCE ON SUBOXONE MAINTENANCE SEEKING DETOX [place]. Exam Limitations: No Limitations - Ebola screening Have you traveled outside of the country in the last 21 days: No Have you had contact with anyone from an Ebola affected area: No Have you been sick,other than usual withdrawal symptoms: No Do you have a fever: No - Review of Systems Constitutional: Chills, Diaphoresis, Night Sweats, Unintentional Wgt. Loss EENT: reports: Tearing, Nose Congestion (DUE TO SEASONAL ALLERGIES), Dental Problems (MISSING TEETH) Respiratory: reports: Shortness of Breath (HX ASTHMA), Wheezing Cardiac: reports: No Symptoms Reported GI: reports: Nausea, Vomiting : reports: No Symptoms Reported Musculoskeletal: reports: See HPI, Back Pain, Joint Pain, Other (HX ORBITAL FX.) Integumentary: reports: Bruising, Lesions (ABCESS LEFT FOREARM) Neuro: reports: Headache, Numbness, Seizure (KLONOPIN WITHDRAWAL SX YEARS AGO), Tingling Endocrine: reports: No Symptoms Reported Hematology: reports: No Symptoms Reported Psychiatric: reports: Orientated x3, Anxious, Depressed Other Systems: Reviewed and Negative Patient History - Patient Medical History Hx Anemia: No Hx Asthma: Yes (MDI) Hx Chronic Obstructive Pulmonary Disease (COPD): No Hx Cardiac Disorders: No Hx Hypertension: No Hx Hypercholesterolemia: No HX Cerebrovascular Accident: No Hx Seizures: Yes (DUE TO KLONOPIN WITHDRAWAL) Hx Diabetes: No Hx Gastrointestinal Disorders: No Hx Genitourinary Disorders: No Hx Sexually Transmitted Disorders: No Hx Renal Disease (ESRD): No Hx Thyroid Disease: No Hx Human Immunodeficiency Virus (HIV): Yes (SINCE 2015; ON ANTIRETROVIRAL DRUGS) Hx Hepatitis C: No Hx Depression: Yes (NOT DIAGNOSED) Hx Suicide Attempt: No (DENIES) Hx Bipolar Disorder: No Hx Schizophrenia: No - Patient Surgical History Past Surgical History: Yes Hx Neurologic Surgery: Yes (LT ORBITAL FRACTURE 2012 - TRAUMA) Hx Cataract Extraction: No Hx Cardiac Surgery: No Hx Lung Surgery: No Hx Breast Surgery: No Hx Breast Biopsy: No Hx Abdominal Surgery: No Hx Appendectomy: No Hx Cholecystectomy: No Hx Genitourinary Surgery: No Hx Orthopedic Surgery: No Other Surgical History: INCISION AND DRAINAGE DUE TO ABSCESS LEFT FOREARM Anesthesia Reaction: No - PPD History Previous Implant?: Yes Documented Results: Positive w/proof Implanted On Prior [facility] Admission?: Yes Date: 02/10/14 Results: CXR TBD PPD to be Administered?: No - Reproductive History Patient is a Female of Child Bearing Age (11 -55 yrs old): No (MALE) Patient : (N/A) - Smoking Cessation Smoking history: Current every day smoker Have you smoked in the past 12 months: Yes Aproximately how many cigarettes per day: 20 Hx Chewing Tobacco Use: No Initiated information on smoking cessation: Yes 'Breaking Loose' booklet given: 06/17/17 - Substance & Tx. History Hx Alcohol Use: No Hx Substance Use: Yes Substance Use Type: Alcohol, Cocaine, Heroin, Marijuana Hx Substance Use Treatment: Yes (LAST TX AT [facility], [place]) - Substances Abused Heroin Route: Injection Frequency: Daily Amount used: 3 bags Age of first use: 25 Date of Last Use: 06/13/17 Cocaine Route: Inhalation Frequency: Daily Amount used: $100 Age of first use: 15 Date of Last Use: 06/13/17 marijuana Route: Smoking Frequency: Daily Amount used: $20 Age of first use: 15 Date of Last Use: 06/13/17 Family Disease History - Family Disease History Family History: Denies Admission Physical Exam [facility] - Vital Signs Vital Signs: Vital Signs - 24 hr 06/17/17 10:33 Temperature 97.6 F Pulse Rate 73 Respiratory 20 Rate Blood Pressure 120/65 - Physical General Appearance: Yes: No Apparent Distress, Anxious HEENTM: Yes: EOMI, Normocephalic, JAZMYNE, Pharynx Normal Respiratory: Yes: Chest Non-Tender, Rhonchi, Wheezing Neck: Yes: No masses,lesions,Nodules, Supple, Trachea in good position Cardiology: Yes: Regular Rhythm, Regular Rate, S1, S2 Abdominal: Yes: Normal Bowel Sounds, Non Tender, Soft Genitourinary: Yes: Other (N/C) Back: Yes: Within Normal Limits Musculoskeletal: Yes: full range of Motion, Gait Steady Extremities: Yes: Normal Range of Motion, Non-Tender Neurological: Yes: director of event management II-XII NML intact, Fully Oriented, Alert, Motor Strength 5/5 Integumentary: Yes: Dry, Warm, Track [place] (BOTH FOREARMS) Lymphatic: Yes: Within Normal Limits - Diagnostic (1) Abscess of forearm, left Current Visit: Yes Status: Chronic Comment: HARDENED BUMPS FROM OLD IVD RELATED ABSCESS ON BOTH FOREAMS. NO PAIN, REDNESS OR FLUCTUANCE. (2) Asthma Current Visit: Yes Status: Chronic Qualifiers: Asthma severity: moderate persistent Asthma complication type: uncomplicated (3) Cocaine dependence, uncomplicated Current Visit: Yes Status: Chronic (4) Cannabis dependence, uncomplicated Current Visit: Yes Status: Chronic (5) Opioid dependence on agonist therapy Current Visit: Yes Status: Chronic (6) History of seizure Current Visit: Yes Status: Suspected (7) HIV (human immunodeficiency virus infection) Current Visit: Yes Status: Chronic Cleared for Admission [facility] - Detox or Rehab Claeared for Rehab Admission: Yes [facility] Breath Alcohol Content Breath Alcohol Content: 0 Urine Drug Screen - Results Drug Screen Negative: No Urine Drug Screen Results: THC-Marijuana, MARY-Cocaine, OPI-Opiates Inpatient Rehab Admission - Initial Determination Are CD services needed?: Yes Free of communicable disease: Yes Not in need of hospitalization: Yes - Rehab Admission Criteria Previous failed treatment: Yes Comorbidities: Yes Lacks judgement: Yes Patient is meeting Inpatient Rehab admission criteria:: Yes
[2017-06-17] MEDS ORDERED: MAG HYDROX/AL HYDROX/SIMETH 30 ML UNIT-DOSE CUP PO PRN (13:41)
[2017-06-17] MEDS ORDERED: IBUPROFEN 400 MG TABLET (FP) PO PRN (13:41)
[2017-06-17] MEDS ORDERED: MENTHOL/PHENOL 1 EACH UD MM PRN (13:41)
[2017-06-17] MEDS ORDERED: LOPERAMIDE HCL 2 MG CAPSULE PO PRN (13:41)
[2017-06-17] MEDS ORDERED: diphenhydrAMINE HCL 50 MG CAPSULE PO PRN (13:41)
[2017-06-17] MEDS ORDERED: hydrOXYzine PAMOATE 25 MG CAPSULE (FP) PO PRN (13:41)
[2017-06-17] MEDS ORDERED: MAGNESIUM HYDROX 2400MG/30ML ORAL SUSPENSION 30 ML CUP PO PRN (13:41)
[2017-06-17] MEDS ORDERED: MAGNESIUM CITRATE 300 ML BOTTLE PO PRN (13:41)
[2017-06-17] MEDS ORDERED: guaiFENesin/D-METHORPHAN HB 10 ML UNIT-DOSE CUPS PO PRN (13:41)
[2017-06-17] MEDS ORDERED: P-EPHED 60MG/TRIPROLIDI 2.5MG TABLET PO PRN (13:41)
[2017-06-17] MEDS ORDERED: ALBUTEROL SO4 2.5/IPRATROPIUM 0.5 INH SOL 3 ML VIAL.NEB. NEB PRN (13:50)
[2017-06-17] MEDS ORDERED: EMTRICITABINE 200MG/TENOFOVIR 300MG PO ONE (17:00)
[2017-06-17] MEDS: ALBUTEROL SO4 2.5/IPRATROPIUM 0.5 INH SOL 3 ML VIAL.NEB. NEB SCH ×2 (18:28→18:29)
[2017-06-17 19:47] LABS: MCH 29.1 pg (25.7-33.7); MCHC 33.6 g/dl (32.0-35.9); MEAN CELL VOLUME 86.7 fl (80-96); MEAN PLT VOLUME 9.5 fl (7.5-11.1); PLATELET COUNT 269 K/MM3 (134-434); RDW 14.6 % (11.9-15.9); WHITE BLOOD COUNT 7.5 K/mm3 (4.0-10.0)
[2017-06-17 20:12] LABS: ANION GAP 4 (8-16); CALCIUM 9.1 mg/dL (8.5-10.1); CO2 31 mmol/L (21-32); CREATININE 0.9 mg/dL (0.7-1.3); GLUCOSE,RANDOM 117 mg/dL (74-106); SGOT/AST 13 U/L (15-37); SGPT/ALT 26 U/L (12-78)
[2017-06-17 20:14] LABS: ALK PHOS 80 U/L (45-117); BILIRUBIN,TOTAL 0.6 mg/dL (0.2-1.0); TOT PROT 7.2 g/dl (6.4-8.2)
[2017-06-17] MEDS: RALTEGRAVIR POTASSIUM 400 MG TAB PO SCH (21:12)
[2017-06-17] MEDS: THIAMINE HCL 100 MG TABLET (FP) PO SCH (21:12)
[2017-06-17] MEDS: BUPRENORPHINE/NALOXONE 8 MG/2 MG FILM PACKET SL SCH (21:12)
[2017-06-17] MEDS: FLUTICASONE PROP 0.05% 16 GM NASAL SPRAY NS SCH (21:14)
[2017-06-18 01:41] LABS: URINE APPEARANCE CLEAR; URINE BILIRUBIN NEGATIVE (NEGATIVE); URINE BLOOD NEGATIVE (NEGATIVE); URINE COLOR YELLOW; URINE GLUCOSE (UA) NEGATIVE (NEGATIVE); URINE KETONE NEGATIVE (NEGATIVE); URINE LEUK ESTERASE NEGATIVE (NEGATIVE); URINE NITRITE NEGATIVE (NEGATIVE); URINE PROTEIN NEGATIVE (NEGATIVE); URINE UROBILINOGEN NEGATIVE mg/dL (0.2-1.0)
[2017-06-18] MEDS ORDERED: TRIMETHOBENZAMIDE HCL 200MG/2ML INJ IM PRN (05:03)
[2017-06-18] MEDS: BUPRENORPHINE/NALOXONE 8 MG/2 MG FILM PACKET SL SCH ×3 (06:24→21:15)
--- NOTE | 2017-06-18 09:48 | EKG ---
Test Reason : Blood Pressure : / mmHG Vent. Rate : 070 BPM Atrial Rate : 070 BPM P-R Int : 180 ms QRS Dur : 090 ms QT Int : 418 ms P-R-T Axes : 078 078 045 degrees QTc Int : 451 ms NORMAL SINUS RHYTHM NORMAL ECG WHEN COMPARED WITH ECG OF 01-JUN-2017 21:37, NONSPECIFIC T WAVE ABNORMALITY NO LONGER EVIDENT IN ANTERIOR LEADS Confirmed by UGO YANCEY, MILDRED ([id number]) on 06/18/2017 9:47:58 AM Referred By: Confirmed By:MILDRED ARIZMENDI MD
[2017-06-18] MEDS: ALBUTEROL SO4 2.5/IPRATROPIUM 0.5 INH SOL 3 ML VIAL.NEB. NEB SCH ×3 (10:19→14:05)
[2017-06-18] MEDS: PRENATAL VITAMINS W/ FOLIC ACID TABLET (FP) PO SCH (10:19)
[2017-06-18] MEDS: FLUTICASONE PROP 0.05% 16 GM NASAL SPRAY NS SCH ×2 (10:19→22:35)
[2017-06-18] MEDS: ALBUTEROL SO4 18 GM HFA INHALER IH PRN (11:00)
[2017-06-18] MEDS ORDERED: [UNRECOGNIZED DRUG - OTHER] PO SCH (11:15)
[2017-06-18] MEDS ORDERED: AMPHETAMINE PO SCH (11:15)
[2017-06-18] MEDS ORDERED: DEXTROAMPHETAMINE PO SCH (11:15)
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
[2017-06-18] MEDS ORDERED: PNEUMOC 13-VAL CONJ-DIP CRM/PF 0.5 ML DISP.SYRIN IM ONE (12:00)
[2017-06-18] MEDS ORDERED: FLU VACCINE QUAD 60 MCG/0.5 ML (MDV 17-18) IM ONE (12:00)
[2017-06-18] MEDS ORDERED: FLUTICASONE PROP 0.05% 16 GM NASAL SPRAY NS ONE (12:30)
[2017-06-18] MEDS: RALTEGRAVIR POTASSIUM 400 MG TAB PO SCH ×2 (12:32→22:34)
[2017-06-18] MEDS: EMTRICITABINE 200MG/TENOFOVIR 300MG PO SCH (12:32)
[2017-06-18] MEDS: DEXTROAMPHETAMINE/AMPHETAMINE 10 MG CAP.ER.24H PO SCH (12:34)
[2017-06-18] MEDS: THIAMINE HCL 100 MG TABLET (FP) PO SCH (21:13)
[2017-06-18] MEDS ORDERED: FLUTICASONE PROP 0.05% 16 GM NASAL SPRAY NS SCH (22:00)
[2017-06-18] MEDS: hydrOXYzine PAMOATE 50 MG CAPSULE (FP) PO PRN (22:35)
[2017-06-19] MEDS: BUPRENORPHINE/NALOXONE 8 MG/2 MG FILM PACKET SL SCH ×3 (06:52→21:10)
[2017-06-19] MEDS: PRENATAL VITAMINS W/ FOLIC ACID TABLET (FP) PO SCH (09:56)
[2017-06-19] MEDS: RALTEGRAVIR POTASSIUM 400 MG TAB PO SCH ×2 (09:56→21:10)
[2017-06-19] MEDS: FLUTICASONE PROP 0.05% 16 GM NASAL SPRAY NS SCH ×2 (09:57→21:13)
[2017-06-19] MEDS: EMTRICITABINE 200MG/TENOFOVIR 300MG PO SCH (09:57)
[2017-06-19] MEDS: DEXTROAMPHETAMINE/AMPHETAMINE 10 MG CAP.ER.24H PO SCH (09:59)
--- NOTE | 2017-06-19 10:04 | HP ---
[facility] Rehab Assess/Revision - Vital signs Vital Signs: Vital Signs Period Temp Pulse Resp BP Sys/Carranza Pulse Ox Last 24 Hr 97.5 F 62 16-16 117/64 Inpatient Rehab Admission - Initial Determination Are CD services needed?: Yes Free of communicable disease: Yes Not in need of hospitalization: Yes - Rehab Admission Criteria Comorbidities: Yes Patient is meeting Inpatient Rehab admission criteria:: Yes
[2017-06-19] MEDS: ALBUTEROL SO4 2.5/IPRATROPIUM 0.5 INH SOL 3 ML VIAL.NEB. NEB SCH ×4 (11:00→21:12)
[2017-06-19] MEDS: THIAMINE HCL 100 MG TABLET (FP) PO SCH (21:10)
[2017-06-20] MEDS: BUPRENORPHINE/NALOXONE 8 MG/2 MG FILM PACKET SL SCH ×3 (06:14→21:14)
[2017-06-20] MEDS: PRENATAL VITAMINS W/ FOLIC ACID TABLET (FP) PO SCH (10:08)
[2017-06-20] MEDS: EMTRICITABINE 200MG/TENOFOVIR 300MG PO SCH (10:09)
[2017-06-20] MEDS: FLUTICASONE PROP 0.05% 16 GM NASAL SPRAY NS SCH ×2 (10:10→21:14)
[2017-06-20] MEDS: DEXTROAMPHETAMINE/AMPHETAMINE 10 MG CAP.ER.24H PO SCH (10:10)
[2017-06-20] MEDS: RALTEGRAVIR POTASSIUM 400 MG TAB PO SCH ×2 (11:07→21:13)
[2017-06-20] MEDS: ALBUTEROL SO4 2.5/IPRATROPIUM 0.5 INH SOL 3 ML VIAL.NEB. NEB SCH ×3 (11:08→19:22)
[2017-06-20] MEDS ORDERED: NICOTINE POLACRILEX 2 MG GUM BUC PRN (12:41)
[2017-06-20] MEDS: NICOTINE 14 MG/24 HOURS TOPICAL PATCH TD SCH (14:25)
[2017-06-20] MEDS: TOLNAFTATE 1% CREAM 15 GM TUBE TP SCH ×2 (14:26→21:15)
[2017-06-20] MEDS: THIAMINE HCL 100 MG TABLET (FP) PO SCH (21:13)
[2017-06-20] MEDS: CLOTRIMAZOLE/BETAMET DIPROP TOPICAL CREAM 45 GM TUBE TP SCH (21:15)
[2017-06-21] MEDS: BUPRENORPHINE/NALOXONE 8 MG/2 MG FILM PACKET SL SCH ×3 (06:30→21:11)
[2017-06-21] MEDS: FLUTICASONE PROP 0.05% 16 GM NASAL SPRAY NS SCH ×2 (09:45→21:23)
[2017-06-21] MEDS: PRENATAL VITAMINS W/ FOLIC ACID TABLET (FP) PO SCH (09:45)
[2017-06-21] MEDS: RALTEGRAVIR POTASSIUM 400 MG TAB PO SCH ×2 (09:45→21:11)
[2017-06-21] MEDS: ALBUTEROL SO4 2.5/IPRATROPIUM 0.5 INH SOL 3 ML VIAL.NEB. NEB SCH ×4 (09:45→21:23)
[2017-06-21] MEDS: TOLNAFTATE 1% CREAM 15 GM TUBE TP SCH ×2 (09:46→21:12)
[2017-06-21] MEDS: EMTRICITABINE 200MG/TENOFOVIR 300MG PO SCH (09:46)
[2017-06-21] MEDS: NICOTINE 14 MG/24 HOURS TOPICAL PATCH TD SCH (09:48)
[2017-06-21] MEDS: DEXTROAMPHETAMINE/AMPHETAMINE 10 MG CAP.ER.24H PO SCH (09:49)
[2017-06-21] MEDS: CLOTRIMAZOLE/BETAMET DIPROP TOPICAL CREAM 45 GM TUBE TP SCH ×2 (09:49→22:00)
[2017-06-21] MEDS: hydrOXYzine PAMOATE 50 MG CAPSULE (FP) PO PRN ×2 (15:50→21:11)
[2017-06-21] MEDS: THIAMINE HCL 100 MG TABLET (FP) PO SCH (21:11)
[2017-06-22] MEDS: BUPRENORPHINE/NALOXONE 8 MG/2 MG FILM PACKET SL SCH ×3 (06:34→21:09)
[2017-06-22] MEDS: ALBUTEROL SO4 2.5/IPRATROPIUM 0.5 INH SOL 3 ML VIAL.NEB. NEB SCH ×2 (09:49→14:34)
[2017-06-22] MEDS: NICOTINE 21 MG/24 HOURS TOPICAL PATCH TD SCH (09:50)
[2017-06-22] MEDS: DEXTROAMPHETAMINE/AMPHETAMINE 10 MG CAP.ER.24H PO SCH (09:50)
[2017-06-22] MEDS: PRENATAL VITAMINS W/ FOLIC ACID TABLET (FP) PO SCH (09:50)
[2017-06-22] MEDS: RALTEGRAVIR POTASSIUM 400 MG TAB PO SCH ×2 (09:50→21:09)
[2017-06-22] MEDS: EMTRICITABINE 200MG/TENOFOVIR 300MG PO SCH (09:52)
[2017-06-22] MEDS: FLUTICASONE PROP 0.05% 16 GM NASAL SPRAY NS SCH ×2 (09:52→21:08)
[2017-06-22] MEDS: CLOTRIMAZOLE/BETAMET DIPROP TOPICAL CREAM 45 GM TUBE TP SCH ×2 (09:53→21:09)
[2017-06-22] MEDS: TOLNAFTATE 1% CREAM 15 GM TUBE TP SCH ×2 (09:54→21:09)
[2017-06-22] MEDS: ALBUTEROL SO4 18 GM HFA INHALER IH PRN (21:09)
[2017-06-22] MEDS: THIAMINE HCL 100 MG TABLET (FP) PO SCH (21:09)
[2017-06-23] MEDS: BUPRENORPHINE/NALOXONE 8 MG/2 MG FILM PACKET SL SCH ×3 (06:15→21:09)
[2017-06-23] MEDS: PRENATAL VITAMINS W/ FOLIC ACID TABLET (FP) PO SCH (09:42)
[2017-06-23] MEDS: RALTEGRAVIR POTASSIUM 400 MG TAB PO SCH ×2 (09:42→21:07)
[2017-06-23] MEDS: EMTRICITABINE 200MG/TENOFOVIR 300MG PO SCH (09:42)
[2017-06-23] MEDS: FLUTICASONE PROP 0.05% 16 GM NASAL SPRAY NS SCH ×2 (09:43→21:07)
[2017-06-23] MEDS: NICOTINE 21 MG/24 HOURS TOPICAL PATCH TD SCH (09:43)
[2017-06-23] MEDS: CLOTRIMAZOLE/BETAMET DIPROP TOPICAL CREAM 45 GM TUBE TP SCH ×2 (09:44→21:07)
[2017-06-23] MEDS: TOLNAFTATE 1% CREAM 15 GM TUBE TP SCH ×2 (09:44→21:07)
[2017-06-23] MEDS: DEXTROAMPHETAMINE/AMPHETAMINE 10 MG CAP.ER.24H PO SCH (09:47)
[2017-06-23] MEDS: CYCLOBENZAPRINE HCL 10 MG TABLET (FP) PO SCH ×2 (14:05→21:07)
[2017-06-23] MEDS: THIAMINE HCL 100 MG TABLET (FP) PO SCH (21:07)
[2017-06-24] MEDS: CYCLOBENZAPRINE HCL 10 MG TABLET (FP) PO SCH ×3 (06:00→21:08)
[2017-06-24] MEDS: BUPRENORPHINE/NALOXONE 8 MG/2 MG FILM PACKET SL SCH ×3 (06:02→21:08)
[2017-06-24] MEDS: RALTEGRAVIR POTASSIUM 400 MG TAB PO SCH ×2 (09:40→21:08)
[2017-06-24] MEDS: PRENATAL VITAMINS W/ FOLIC ACID TABLET (FP) PO SCH (09:40)
[2017-06-24] MEDS: DEXTROAMPHETAMINE/AMPHETAMINE 10 MG CAP.ER.24H PO SCH (09:40)
[2017-06-24] MEDS: EMTRICITABINE 200MG/TENOFOVIR 300MG PO SCH (09:40)
[2017-06-24] MEDS: CLOTRIMAZOLE/BETAMET DIPROP TOPICAL CREAM 45 GM TUBE TP SCH ×2 (09:40→21:08)
[2017-06-24] MEDS: FLUTICASONE PROP 0.05% 16 GM NASAL SPRAY NS SCH ×2 (09:40→21:08)
[2017-06-24] MEDS: TOLNAFTATE 1% CREAM 15 GM TUBE TP SCH ×2 (09:41→21:08)
[2017-06-24] MEDS: NICOTINE 21 MG/24 HOURS TOPICAL PATCH TD SCH (09:41)
[2017-06-24] MEDS: THIAMINE HCL 100 MG TABLET (FP) PO SCH (21:08)
[2017-06-25] MEDS: CYCLOBENZAPRINE HCL 10 MG TABLET (FP) PO SCH ×3 (06:31→21:08)
[2017-06-25] MEDS: BUPRENORPHINE/NALOXONE 8 MG/2 MG FILM PACKET SL SCH ×3 (06:31→21:08)
[2017-06-25] MEDS: DEXTROAMPHETAMINE/AMPHETAMINE 10 MG CAP.ER.24H PO SCH (09:35)
[2017-06-25] MEDS: CLOTRIMAZOLE/BETAMET DIPROP TOPICAL CREAM 45 GM TUBE TP SCH ×2 (09:35→21:10)
[2017-06-25] MEDS: RALTEGRAVIR POTASSIUM 400 MG TAB PO SCH ×2 (09:35→21:08)
[2017-06-25] MEDS: PRENATAL VITAMINS W/ FOLIC ACID TABLET (FP) PO SCH (09:35)
[2017-06-25] MEDS: FLUTICASONE PROP 0.05% 16 GM NASAL SPRAY NS SCH ×2 (09:35→21:10)
[2017-06-25] MEDS: TOLNAFTATE 1% CREAM 15 GM TUBE TP SCH ×2 (09:36→21:09)
[2017-06-25] MEDS: EMTRICITABINE 200MG/TENOFOVIR 300MG PO SCH (09:36)
[2017-06-25] MEDS: NICOTINE 21 MG/24 HOURS TOPICAL PATCH TD SCH (09:36)
[2017-06-25] MEDS: THIAMINE HCL 100 MG TABLET (FP) PO SCH (21:08)
[2017-06-26] MEDS: BUPRENORPHINE/NALOXONE 8 MG/2 MG FILM PACKET SL SCH ×3 (06:07→21:16)
[2017-06-26] MEDS: CYCLOBENZAPRINE HCL 10 MG TABLET (FP) PO SCH ×3 (06:07→21:16)
[2017-06-26] MEDS: NICOTINE 21 MG/24 HOURS TOPICAL PATCH TD SCH (09:21)
[2017-06-26] MEDS: RALTEGRAVIR POTASSIUM 400 MG TAB PO SCH ×2 (09:21→21:16)
[2017-06-26] MEDS: PRENATAL VITAMINS W/ FOLIC ACID TABLET (FP) PO SCH (09:21)
[2017-06-26] MEDS: CLOTRIMAZOLE/BETAMET DIPROP TOPICAL CREAM 45 GM TUBE TP SCH ×2 (09:21→21:17)
[2017-06-26] MEDS: EMTRICITABINE 200MG/TENOFOVIR 300MG PO SCH (09:24)
[2017-06-26] MEDS: FLUTICASONE PROP 0.05% 16 GM NASAL SPRAY NS SCH ×2 (09:24→21:17)
[2017-06-26] MEDS: TOLNAFTATE 1% CREAM 15 GM TUBE TP SCH ×2 (09:25→21:17)
[2017-06-26] MEDS: hydrOXYzine PAMOATE 50 MG CAPSULE (FP) PO PRN (20:37)
[2017-06-26] MEDS: THIAMINE HCL 100 MG TABLET (FP) PO SCH (21:16)
[2017-06-27] MEDS: BUPRENORPHINE/NALOXONE 8 MG/2 MG FILM PACKET SL SCH ×3 (06:24→21:07)
[2017-06-27] MEDS: CYCLOBENZAPRINE HCL 10 MG TABLET (FP) PO SCH ×3 (06:24→21:06)
[2017-06-27] MEDS: CLOTRIMAZOLE/BETAMET DIPROP TOPICAL CREAM 45 GM TUBE TP SCH ×2 (10:52→21:07)
[2017-06-27] MEDS: RALTEGRAVIR POTASSIUM 400 MG TAB PO SCH ×2 (10:52→21:06)
[2017-06-27] MEDS: FLUTICASONE PROP 0.05% 16 GM NASAL SPRAY NS SCH ×2 (10:52→21:07)
[2017-06-27] MEDS: EMTRICITABINE 200MG/TENOFOVIR 300MG PO SCH (10:52)
[2017-06-27] MEDS: DEXTROAMPHETAMINE/AMPHETAMINE 10 MG CAP.ER.24H PO SCH (10:53)
[2017-06-27] MEDS: NICOTINE 21 MG/24 HOURS TOPICAL PATCH TD SCH (10:54)
[2017-06-27] MEDS: PRENATAL VITAMINS W/ FOLIC ACID TABLET (FP) PO SCH (10:54)
[2017-06-27] MEDS: TOLNAFTATE 1% CREAM 15 GM TUBE TP SCH ×2 (10:55→21:07)
[2017-06-27] MEDS ORDERED: FLU VACCINE QUAD 60 MCG/0.5 ML (MDV 17-18) IM ONE (14:46)
[2017-06-27] MEDS ORDERED: PNEUMOCOCCAL 23 VACCINE 0.5 ML VIAL SQ ONE (14:47)
[2017-06-27] MEDS ORDERED: PNEUMOC 13-VAL CONJ-DIP CRM/PF 0.5 ML DISP.SYRIN IM ONE (16:15)
[2017-06-27] MEDS: hydrOXYzine PAMOATE 50 MG CAPSULE (FP) PO PRN (21:07)
[2017-06-27] MEDS: THIAMINE HCL 100 MG TABLET (FP) PO SCH (21:07)
[2017-06-28] MEDS: CYCLOBENZAPRINE HCL 10 MG TABLET (FP) PO SCH ×3 (06:49→21:01)
[2017-06-28] MEDS: BUPRENORPHINE/NALOXONE 8 MG/2 MG FILM PACKET SL SCH ×3 (06:49→21:02)
[2017-06-28] MEDS: DEXTROAMPHETAMINE/AMPHETAMINE 10 MG CAP.ER.24H PO SCH (09:46)
[2017-06-28] MEDS: PRENATAL VITAMINS W/ FOLIC ACID TABLET (FP) PO SCH (09:46)
[2017-06-28] MEDS: FLUTICASONE PROP 0.05% 16 GM NASAL SPRAY NS SCH ×2 (09:46→21:05)
[2017-06-28] MEDS: RALTEGRAVIR POTASSIUM 400 MG TAB PO SCH ×2 (09:46→21:01)
[2017-06-28] MEDS: TOLNAFTATE 1% CREAM 15 GM TUBE TP SCH ×2 (09:47→21:02)
[2017-06-28] MEDS: CLOTRIMAZOLE/BETAMET DIPROP TOPICAL CREAM 45 GM TUBE TP SCH ×2 (09:47→21:01)
[2017-06-28] MEDS: NICOTINE 21 MG/24 HOURS TOPICAL PATCH TD SCH (09:47)
[2017-06-28] MEDS: EMTRICITABINE 200MG/TENOFOVIR 300MG PO SCH (09:48)
[2017-06-28] MEDS ORDERED: PNEUMOCOCCAL 23 VACCINE 0.5 ML VIAL IM ONE (12:00)
[2017-06-28] MEDS ORDERED: FLU VACCINE QUAD 60 MCG/0.5 ML (MDV 17-18) IM ONE (12:00)
[2017-06-28] MEDS: THIAMINE HCL 100 MG TABLET (FP) PO SCH (21:01)
[2017-06-28] MEDS: hydrOXYzine PAMOATE 50 MG CAPSULE (FP) PO PRN (21:02)
[2017-06-29] MEDS: CYCLOBENZAPRINE HCL 10 MG TABLET (FP) PO SCH ×3 (06:16→21:52)
[2017-06-29] MEDS: ACETAMINOPHEN 325 MG TABLET (FP) PO PRN ×3 (06:16→21:54)
[2017-06-29] MEDS: BUPRENORPHINE/NALOXONE 8 MG/2 MG FILM PACKET SL SCH ×3 (06:17→21:53)
[2017-06-29] MEDS: PRENATAL VITAMINS W/ FOLIC ACID TABLET (FP) PO SCH (09:54)
[2017-06-29] MEDS: EMTRICITABINE 200MG/TENOFOVIR 300MG PO SCH (09:54)
[2017-06-29] MEDS: RALTEGRAVIR POTASSIUM 400 MG TAB PO SCH ×2 (09:54→21:52)
[2017-06-29] MEDS: DEXTROAMPHETAMINE/AMPHETAMINE 10 MG CAP.ER.24H PO SCH (09:54)
[2017-06-29] MEDS: TOLNAFTATE 1% CREAM 15 GM TUBE TP SCH ×2 (09:55→21:53)
[2017-06-29] MEDS: FLUTICASONE PROP 0.05% 16 GM NASAL SPRAY NS SCH ×2 (09:55→21:53)
[2017-06-29] MEDS: NICOTINE 21 MG/24 HOURS TOPICAL PATCH TD SCH (09:55)
[2017-06-29] MEDS: CLOTRIMAZOLE/BETAMET DIPROP TOPICAL CREAM 45 GM TUBE TP SCH ×2 (09:55→21:53)
[2017-06-29] MEDS: ONDANSETRON *ODT* 4 MG TABLET SL PRN (17:29)
[2017-06-29] MEDS: THIAMINE HCL 100 MG TABLET (FP) PO SCH (21:52)
[2017-06-30] MEDS: ACETAMINOPHEN 325 MG TABLET (FP) PO PRN (06:23)
[2017-06-30] MEDS: BUPRENORPHINE/NALOXONE 8 MG/2 MG FILM PACKET SL SCH ×3 (06:24→21:05)
[2017-06-30] MEDS: CYCLOBENZAPRINE HCL 10 MG TABLET (FP) PO SCH ×3 (06:24→21:05)
[2017-06-30] MEDS: RALTEGRAVIR POTASSIUM 400 MG TAB PO SCH ×2 (09:51→21:05)
[2017-06-30] MEDS: PRENATAL VITAMINS W/ FOLIC ACID TABLET (FP) PO SCH (09:52)
[2017-06-30] MEDS: NICOTINE 21 MG/24 HOURS TOPICAL PATCH TD SCH (09:52)
[2017-06-30] MEDS: DEXTROAMPHETAMINE/AMPHETAMINE 10 MG CAP.ER.24H PO SCH (09:53)
[2017-06-30] MEDS: FLUTICASONE PROP 0.05% 16 GM NASAL SPRAY NS SCH ×2 (09:53→21:06)
[2017-06-30] MEDS: EMTRICITABINE 200MG/TENOFOVIR 300MG PO SCH (09:57)
[2017-06-30] MEDS: CLOTRIMAZOLE/BETAMET DIPROP TOPICAL CREAM 45 GM TUBE TP SCH ×2 (11:31→21:06)
[2017-06-30] MEDS: TOLNAFTATE 1% CREAM 15 GM TUBE TP SCH ×2 (11:31→21:06)
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
[2017-06-30] MEDS: NAPROXEN 500 MG TABLET (FP) PO SCH ×2 (13:04→21:05)
[2017-06-30] MEDS: ONDANSETRON *ODT* 4 MG TABLET SL PRN (13:04)
[2017-06-30] MEDS: PANTOPRAZOLE 40 MG TABLET (FP) PO SCH (13:04)
[2017-06-30] MEDS: THIAMINE HCL 100 MG TABLET (FP) PO SCH (21:05)
[2017-06-30] MEDS: hydrOXYzine PAMOATE 50 MG CAPSULE (FP) PO PRN (21:07)
[2017-07-01] MEDS: BUPRENORPHINE/NALOXONE 8 MG/2 MG FILM PACKET SL SCH ×3 (06:25→21:07)
[2017-07-01] MEDS: CYCLOBENZAPRINE HCL 10 MG TABLET (FP) PO SCH ×3 (06:25→21:07)
[2017-07-01] MEDS: FLUTICASONE PROP 0.05% 16 GM NASAL SPRAY NS SCH ×2 (10:11→21:07)
[2017-07-01] MEDS: NAPROXEN 500 MG TABLET (FP) PO SCH ×2 (10:12→21:07)
[2017-07-01] MEDS: PRENATAL VITAMINS W/ FOLIC ACID TABLET (FP) PO SCH (10:12)
[2017-07-01] MEDS: EMTRICITABINE 200MG/TENOFOVIR 300MG PO SCH (10:12)
[2017-07-01] MEDS: RALTEGRAVIR POTASSIUM 400 MG TAB PO SCH ×2 (10:12→21:07)
[2017-07-01] MEDS: PANTOPRAZOLE 40 MG TABLET (FP) PO SCH (10:12)
[2017-07-01] MEDS: CLOTRIMAZOLE/BETAMET DIPROP TOPICAL CREAM 45 GM TUBE TP SCH ×2 (10:13→21:07)
[2017-07-01] MEDS: NICOTINE 21 MG/24 HOURS TOPICAL PATCH TD SCH (10:13)
[2017-07-01] MEDS: TOLNAFTATE 1% CREAM 15 GM TUBE TP SCH ×2 (10:13→21:07)
[2017-07-01] MEDS: DEXTROAMPHETAMINE/AMPHETAMINE 10 MG CAP.ER.24H PO SCH (10:16)
--- NOTE | 2017-07-01 12:45 | PN ---
Psychiatric Progress Note Vital Signs: Vital Signs Period Temp Pulse Resp BP Sys/Carranza Pulse Ox Last 24 Hr 97.7 F-100.3 F 61-101 18-18 123-125/63-74 Date of Session: 07/01/17 Chief Complaint:: discharge visit HPI: Patient has addresses cocaine dependence, opioid dependence comorbid SHUN and ADD. ROS: HIV+ medically managed. Current Medications: Active Medications Generic Name Dose Route Start Last Admin Trade Name Freq PRN Reason Stop Dose Admin Acetaminophen 650 mg 06/17/17 13:41 06/30/17 06:23 Tylenol - PO 650 mg Q4H PRN Administration PAIN Al Hydroxide/Mg Hydroxide 30 ml 06/17/17 13:41 Mylanta Oral Suspension - PO Q6H PRN DYSPEPSIA Albuterol Sulfate 2 puff 06/17/17 13:49 06/22/17 21:09 Ventolin Hfa Inhaler - IH 2 puff Q4H PRN Administration ASTHMA Amphetamine/Dextroamphetamine 10 mg 06/27/17 10:00 07/01/17 10:16 Adderall Xr - PO 07/03/17 09:59 10 mg DAILY MARIXA Administration Clotrimazole 1 applic 06/20/17 22:00 07/01/17 10:13 Lotrisone Cream (Large Tube) - TP Not Given BID MARIXA Cyclobenzaprine HCl 10 mg 06/23/17 14:00 07/01/17 06:25 Flexeril - PO 10 mg TID MARIXA Administration Diphenhydramine HCl 50 mg 06/17/17 13:41 Benadryl - PO HSMR1 PRN INSOMNIA Emtricitabine/Tenofovir 1 tab 06/18/17 10:00 07/01/17 10:12 Truvada PO 1 tab DAILY MARIXA Administration Eucalyptus/Menthol/Phenol/Sorbitol 1 each 06/17/17 13:41 06/29/17 09:58 Cepastat Lozenge - MM 1 each Q4H PRN Administration SORE THROAT Fluticasone Propionate 1 spray 06/18/17 12:20 07/01/17 10:11 Flonase - NS 1 spray BID MARIXA Administration Guaifenesin 10 ml 06/17/17 13:41 Robitussin Dm - PO Q6H PRN COUGH Hydroxyzine Pamoate 50 mg 06/18/17 11:34 06/30/17 21:07 Vistaril - PO 50 mg Q4H PRN Administration ANXIETY Loperamide HCl 4 mg 06/17/17 13:41 Imodium - PO Q6H PRN DIARRHEA Magnesium Citrate 300 ml 06/17/17 13:41 Citroma - PO Q48H PRN CONSTIPATION Magnesium Hydroxide 30 ml 06/17/17 13:41 06/25/17 09:37 Milk Of Magnesia - PO 30 ml DAILY PRN Administration CONSTIPATION Naproxen 500 mg 06/30/17 12:52 07/01/17 10:12 Naprosyn - PO 500 mg BID MARIXA Administration Nicotine 21 mg 06/22/17 10:00 07/01/17 10:13 Nicoderm Patch - TD 21 mg DAILY MARIXA Administration Nicotine Polacrilex 2 mg 06/20/17 12:41 Nicorette Gum - BUC Q2H PRN NICOTINE REPLACEMENT RX Ondansetron HCl 8 mg 06/29/17 17:16 06/30/17 13:04 Zofran Odt - SL 8 mg Q4H PRN Administration NAUSEA AND/OR VOMITING Pantoprazole Sodium 40 mg 06/30/17 12:53 07/01/17 10:12 Protonix - PO 40 mg DAILY MARIXA Administration Multivit/Folic Acid/Iron 1 tab 06/18/17 10:00 07/01/17 10:12 Vitamins (Sjr) - PO 1 tab DAILY MARIXA Administration Pseudoephedrine/Triprolidine 1 combo 06/17/17 13:41 Actifed - PO TID PRN NASAL CONGESTION Raltegravir 400 mg 06/17/17 22:00 07/01/17 10:12 Isentress - PO 400 mg BID MARIXA Administration Thiamine HCl 100 mg 06/17/17 22:00 06/30/17 21:05 Vitamin B1 - PO 100 mg HS MARIXA Administration Tolnaftate 1 applic 06/20/17 12:45 07/01/17 10:13 Tinactin 1% Cream - TP Not Given BID MARIXA Current Side Effect: No Lab tests ordered: No Lab tests reviewed: Yes Provider note:: Patient will complete his treatment on 07/02/17 and meet his goals, [facility] and will stay at the [facility]. He verbalized understanding of the negative consequenses of his addiction and importance of changing behavior for the utilizations of supports to prevent relapses.He also focuses on plans to address his medical issues. MSE completed, patient was encouraged to continue maintain abstinence. Patient is stable for discharge on 07/02/17. Total face to face time:: 30 Mental Status Exam - Mental Status Exam Alert and Oriented to: Time, Place, Person Cognitive Function: Good Patient Appearance: Well Groomed Mood: Anxious Affect: Appropriate, Mood Congruent Patient Behavior: Appropriate, Cooperative Speech Pattern: Clear, Appropriate Voice Loudness: Normal Thought Process: Intact, Goal Oriented Thought Disorder: Not Present Hallucinations: Denies Suicidal Ideation: Denies Homicidal Ideation: Denies Insight/Judgement: Fair Sleep: Fair Appetite: Fair Muscle strength/Tone: Normal Gait/Station: Normal Psychiatric Treatment Plan - Problem List (1) Opioid dependence on agonist therapy Current Visit: Yes (2) Cocaine dependence Current Visit: Yes (3) ADD (attention deficit disorder) Current Visit: Yes (4) SHUN (generalized anxiety disorder) Current Visit: Yes
[2017-07-01] MEDS: THIAMINE HCL 100 MG TABLET (FP) PO SCH (21:07)
[2017-07-01] MEDS: hydrOXYzine PAMOATE 50 MG CAPSULE (FP) PO PRN (21:08)
[2017-07-02] MEDS: BUPRENORPHINE/NALOXONE 8 MG/2 MG FILM PACKET SL SCH (06:40)
[2017-07-02] MEDS: CYCLOBENZAPRINE HCL 10 MG TABLET (FP) PO SCH (06:40)
[2017-07-02 06:56] VITALS: BP 109/56; PULSE 75; TEMP 97.6
[2017-07-02] MEDS: FLUTICASONE PROP 0.05% 16 GM NASAL SPRAY NS SCH (09:58)
[2017-07-02] MEDS: RALTEGRAVIR POTASSIUM 400 MG TAB PO SCH (09:59)
[2017-07-02] MEDS: PRENATAL VITAMINS W/ FOLIC ACID TABLET (FP) PO SCH (09:59)
[2017-07-02] MEDS: EMTRICITABINE 200MG/TENOFOVIR 300MG PO SCH (09:59)
[2017-07-02] MEDS: NAPROXEN 500 MG TABLET (FP) PO SCH (09:59)
[2017-07-02] MEDS: PANTOPRAZOLE 40 MG TABLET (FP) PO SCH (10:00)
[2017-07-02] MEDS: DEXTROAMPHETAMINE/AMPHETAMINE 10 MG CAP.ER.24H PO SCH (10:00)
[2017-07-02] MEDS: NICOTINE 21 MG/24 HOURS TOPICAL PATCH TD SCH (10:00)
[2017-07-02] MEDS: TOLNAFTATE 1% CREAM 15 GM TUBE TP SCH (10:01)
[2017-07-02] MEDS: CLOTRIMAZOLE/BETAMET DIPROP TOPICAL CREAM 45 GM TUBE TP SCH (10:01)
== END 2017-07-02 10:00 | disposition home or self-care (01) | DRG 772 ==
LOC: YASAS 09:26 → Y5N 16:28
PROVIDERS: ADMIT Psychiatry & Neurology Psychiatry; ATTEND Psychiatry & Neurology Psychiatry
PROC: HZ42ZZZ Group Counseling for Substance Abuse Treatment, Cognitive-Behavioral (ICD-10-PCS; principal; 2017-06-17)
DX: F11.20 Opioid dependence, uncomplicated (principal); F14.20 Cocaine dependence, uncomplicated; F12.20 Cannabis dependence, uncomplicated; F17.210 Nicotine dependence, cigarettes, uncomplicated; F90.9 Attention-deficit hyperactivity disorder, unspecified type; F41.1 Generalized anxiety disorder; B34.9 Viral infection, unspecified; R50.83 Postvaccination fever; T50.B95A Adverse effect of other viral vaccines, initial encounter; Y92.239 Unspecified place in hospital as the place of occurrence of the external cause; Z21 Asymptomatic human immunodeficiency virus [HIV] infection status; Z86.69 Personal history of other diseases of the nervous system and sense organs; J45.40 Moderate persistent asthma, uncomplicated; Z88.8 Allergy status to other drugs, medicaments and biological substances; L02.414 Cutaneous abscess of left upper limb
CPT/HCPCS: 36415; 71020-TC; 80053; 81003; 85027; 86593; 90688; 90732; 93005; 93010; 94640; G0009

== ENCOUNTER 2018-03-14 10:49 | Inpatient (IN) | payer OTHER ==
[2018-03-14 11:00] VITALS: BMI 35.6
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
[2018-03-14] MEDS ORDERED: guaiFENesin/D-METHORPHAN HB 10 ML UNIT-DOSE CUPS PO PRN (13:23)
[2018-03-14] MEDS ORDERED: MENTHOL/PHENOL 1 EACH UD MM PRN (13:23)
[2018-03-14] MEDS ORDERED: P-EPHED 60MG/TRIPROLIDI 2.5MG TABLET PO PRN (13:23)
[2018-03-14] MEDS ORDERED: MAG HYDROX/AL HYDROX/SIMETH 30 ML UNIT-DOSE CUP PO PRN (13:23)
[2018-03-14] MEDS ORDERED: hydrOXYzine PAMOATE 25 MG CAPSULE (FP) PO PRN (13:23)
[2018-03-14] MEDS ORDERED: IBUPROFEN 400 MG TABLET (FP) PO PRN (13:23)
[2018-03-14] MEDS ORDERED: LOPERAMIDE HCL 2 MG CAPSULE PO PRN (13:23)
[2018-03-14] MEDS ORDERED: MAGNESIUM CITRATE 300 ML BOTTLE PO PRN (13:23)
[2018-03-14] MEDS ORDERED: ACETAMINOPHEN 325 MG TABLET (FP) PO PRN (13:23)
[2018-03-14] MEDS ORDERED: MAGNESIUM HYDROX 2400MG/30ML ORAL SUSPENSION 30 ML CUP PO PRN (13:23)
[2018-03-14] MEDS ORDERED: ALBUTEROL SO4 18 GM HFA INHALER IH PRN (13:25)
[2018-03-14] MEDS ORDERED: diazePAM 5 MG TABLET PO ONE (14:00)
[2018-03-14] MEDS: diazePAM 5 MG TABLET PO SCH ×2 (15:02→22:21)
[2018-03-14 17:57] LABS: URINE APPEARANCE TURBID; URINE BILIRUBIN NEGATIVE (<2.0 mg/dL); URINE COLOR YELLOW; URINE GLUCOSE (UA) NEGATIVE (NEGATIVE); URINE KETONE NEGATIVE (NEGATIVE); URINE LEUK ESTERASE TRACE (NEGATIVE); URINE NITRITE NEGATIVE (NEGATIVE); URINE PROTEIN NEGATIVE (NEGATIVE)
[2018-03-14 18:04] LABS: URINE BACTERIA MODERATE /hpf (NONE SEEN); URINE MUCUS FEW
[2018-03-14] MEDS ORDERED: MELATONIN 5 MG TABLETS PO PRN (22:00)
[2018-03-14] MEDS: THIAMINE HCL 100 MG TABLET (FP) PO SCH (22:20)
[2018-03-14] MEDS: BUPRENORPHINE/NALOXONE 8 MG/2 MG FILM PACKET SL SCH (22:21)
[2018-03-14] MEDS: PATIENT'S OWN MEDICATION (NON-FORMULARY) (Raltegravir [Isentress] 400 MG) PO SCH (22:22)
[2018-03-15] MEDS: diazePAM 5 MG TABLET PO PRN ×4 (00:25→20:25)
[2018-03-15] MEDS ORDERED: ALBUTEROL SO4 0.083% IH SOL 2.5 MG/3 ML VIAL.NEB. NEB PRN (00:51)
[2018-03-15] MEDS: diazePAM 5 MG TABLET PO SCH ×3 (05:43→22:00)
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
[2018-03-15] MEDS ORDERED: BACITRACIN 0.9 GM PACKET TP ONE (10:00)
[2018-03-15] MEDS: BUPRENORPHINE/NALOXONE 8 MG/2 MG FILM PACKET SL SCH ×2 (10:18→22:00)
[2018-03-15] MEDS: PRENATAL VITAMINS W/ FOLIC ACID TABLET (FP) PO SCH (10:18)
[2018-03-15] MEDS: PATIENT'S OWN MEDICATION (NON-FORMULARY) (Emtricitabine/Tenofovir [Truvada -] 1 TAB) PO SCH (10:48)
[2018-03-15] MEDS: PATIENT'S OWN MEDICATION (NON-FORMULARY) (Raltegravir [Isentress] 400 MG) PO SCH ×2 (10:48→22:03)
[2018-03-15] MEDS: NICOTINE POLACRILEX 4 MG GUM BUC PRN ×2 (10:53→14:48)
[2018-03-15] MEDS: METHYLPHENIDATE HCL 5 MG TABLET PO SCH ×2 (10:53→14:47)
[2018-03-15 11:13] LABS: HEMATOCRIT 42.8 % (35.4-49); HEMOGLOBIN 14.3 GM/dL (11.7-16.9); MCH 30.3 pg (25.7-33.7); MCHC 33.5 g/dl (32.0-35.9); MEAN CELL VOLUME 90.5 fl (80-96); MEAN PLT VOLUME 9.3 fl (7.5-11.1); PLATELET COUNT 214 K/MM3 (134-434); RBC 4.73 M/mm3 (4.00-5.60); RDW 13.8 % (11.9-15.9); WHITE BLOOD COUNT 7.3 K/mm3 (4.0-10.0)
[2018-03-15 11:22] LABS: ALBUMIN 3.5 g/dl (3.4-5.0); ANION GAP 5 (8-16); BILIRUBIN,TOTAL 0.4 mg/dL (0.2-1.0); BLOOD UREA NITROGEN 14 mg/dL (7-18); CALCIUM 8.4 mg/dL (8.5-10.1); CHLORIDE 104 mmol/L (98-107); CO2 30 mmol/L (21-32); CREATININE 0.9 mg/dL (0.7-1.3); GLUCOSE,RANDOM 92 mg/dL (74-106); POTASSIUM 4.3 mmol/L (3.5-5.1); SGOT/AST 149 U/L (15-37); SODIUM 139 mmol/L (136-145); TOT PROT 6.5 g/dl (6.4-8.2)
[2018-03-15 11:23] LABS: ALK PHOS 92 U/L (45-117)
[2018-03-15 11:39] LABS: SGPT/ALT 455 U/L (12-78)
--- NOTE | 2018-03-15 11:56 | PN ---
S CIWA - CIWA Score Nausea/Vomitin-No Nausea/No Vomiting Muscle Tremors: 4-Moderate,w/Arms Extend Anxiety: 4-Mod. Anxious/Guarded Agitation: 4-Moderately Restless Paroxysmal Sweats: 1-Minimal Palms Moist Orientation: 0-Oriented Tacttile Disturbances: 0-None Auditory Disturbances: 0-None Visual Disturbances: 0-None Headache: 0-None Present CIWA-Ar Total Score: 13 BHS Progress Note (SOAP) Subjective: ANXIETY,SWEATS,DIARRHEA,TREMORS. PT REPORTS TAKES HIS SUBOXONE THREE TIME A DAY --8 MG IN THE MORNING -4 MG IN THE AFTERNOON- 8 MG AT NIGHT. Objective: 03/15/18 11:54 Vital Signs 03/15/18 03/15/18 06:08 10:30 Temperature 97 F L 97.0 F L Pulse Rate 59 L 69 Respiratory 18 20 Rate Blood Pressure 106/64 104/62 Laboratory Tests 03/14/18 03/15/18 03/15/18 Unknown 07:30 07:30 WBC 7.3 RBC 4.73 Hgb 14.3 Hct 42.8 MCV 90.5 MCH 30.3 MCHC 33.5 RDW 13.8 Plt Count 214 D MPV 9.3 Sodium 139 Potassium 4.3 Chloride 104 Carbon Dioxide 30 Anion Gap 5 L BUN 14 Creatinine 0.9 Creat Clearance w eGFR > 60 Random Glucose 92 D Calcium 8.4 L Total Bilirubin 0.4 AST 149 H D ALT 455 H D Alkaline Phosphatase 92 Total Protein 6.5 Albumin 3.5 Urine Color Yellow Urine Appearance Turbid Urine pH 5.0 Ur Specific [place] 1.028 Urine Protein Negative Urine Glucose (UA) Negative Urine Ketones Negative Urine Blood Negative Urine Nitrite Negative Urine Bilirubin Negative Urine Urobilinogen 2.0 Ur Leukocyte Esterase Trace Urine WBC (Auto) 29 Urine RBC (Auto) 2 Urine Bacteria Moderate Urine Mucus Few Assessment: 03/15/18 11:55 WITHDRAWAL SX Plan: CONTINUE DETOX INCREASE PO FLUIDS CHANGE SUBOXONE SCHEDULE DIRECTED.
[2018-03-15] MEDS: BUPRENORPHINE/NALOXONE 2 MG/0.5 MG FILM PACKET SL SCH (15:22)
[2018-03-15] MEDS ORDERED: ALBUTEROL SO4 2.5/IPRATROPIUM 0.5 INH SOL 3 ML VIAL.NEB. NEB PRN (18:53)
[2018-03-15] MEDS: THIAMINE HCL 100 MG TABLET (FP) PO SCH (22:00)
[2018-03-15] MEDS ORDERED: ALBUTEROL SO4 0.083% IH SOL 2.5 MG/3 ML VIAL.NEB. NEB SCH (22:00)
[2018-03-15] MEDS: BUDESONIDE/FORMETEROL FUMARATE 80/4.5 mcg INHALER IH SCH (22:00)
[2018-03-15] MEDS: ZOLPIDEM TARTRATE 10 MG TABLET (PARK CARE ONLY) PO PRN (22:00)
[2018-03-15] MEDS: ALBUTEROL SO4 2.5/IPRATROPIUM 0.5 INH SOL 3 ML VIAL.NEB. NEB SCH (22:02)
[2018-03-15] MEDS: BACITRACIN 15 GM TUBE TOPICAL OINTMENT TP SCH (22:03)
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
[2018-03-16] MEDS: ALBUTEROL SO4 2.5/IPRATROPIUM 0.5 INH SOL 3 ML VIAL.NEB. NEB SCH ×4 (08:25→21:00)
[2018-03-16] MEDS: BUDESONIDE/FORMETEROL FUMARATE 80/4.5 mcg INHALER IH SCH ×2 (11:01→21:57)
[2018-03-16] MEDS: METHYLPHENIDATE HCL 5 MG TABLET PO SCH ×2 (11:01→15:26)
[2018-03-16] MEDS: diazePAM 5 MG TABLET PO SCH ×2 (11:01→21:57)
[2018-03-16] MEDS: BUPRENORPHINE/NALOXONE 8 MG/2 MG FILM PACKET SL SCH ×2 (11:01→21:57)
[2018-03-16] MEDS: PRENATAL VITAMINS W/ FOLIC ACID TABLET (FP) PO SCH (11:02)
[2018-03-16] MEDS ORDERED: EMTRICITABINE 200MG/TENOFOVIR 300MG PO SCH (11:19)
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
[2018-03-16] MEDS: BACITRACIN 0.9 GM PACKET TP SCH ×2 (12:35→21:59)
[2018-03-16] MEDS: BACITRACIN 15 GM TUBE TOPICAL OINTMENT TP SCH (12:38)
[2018-03-16] MEDS: PATIENT'S OWN MEDICATION (NON-FORMULARY) (Emtricitabine/Tenofovir [Truvada -] 1 TAB) PO SCH (12:41)
[2018-03-16] MEDS: PATIENT'S OWN MEDICATION (NON-FORMULARY) (Raltegravir [Isentress] 400 MG) PO SCH (12:42)
[2018-03-16] MEDS: BUPRENORPHINE/NALOXONE 2 MG/0.5 MG FILM PACKET SL SCH (15:26)
[2018-03-16] MEDS: RALTEGRAVIR POTASSIUM 400 MG TAB PO SCH (21:57)
[2018-03-16] MEDS: ZOLPIDEM TARTRATE 10 MG TABLET (PARK CARE ONLY) PO PRN (21:57)
[2018-03-16] MEDS: THIAMINE HCL 100 MG TABLET (FP) PO SCH (21:57)
--- NOTE | 2018-03-16 22:13 | EKG ---
Test Reason : Blood Pressure : / mmHG Vent. Rate : 061 BPM Atrial Rate : 061 BPM P-R Int : 156 ms QRS Dur : 076 ms QT Int : 404 ms P-R-T Axes : 073 068 047 degrees QTc Int : 406 ms NORMAL SINUS RHYTHM NORMAL ECG WHEN COMPARED WITH ECG OF 17-JUN-2017 17:31, NO SIGNIFICANT CHANGE WAS FOUND Confirmed by ELIESER NOBLE MD ([id number]) on 03/16/2018 10:12:56 PM Referred By: Willi Wheeler Confirmed By:ELIESER NOBLE MD
[2018-03-16] MEDS: NICOTINE POLACRILEX 4 MG GUM BUC PRN (23:22)
[2018-03-17] MEDS: diazePAM 5 MG TABLET PO PRN (02:11)
[2018-03-17] MEDS: NICOTINE POLACRILEX 4 MG GUM BUC PRN ×2 (02:13→10:04)
[2018-03-17] MEDS: ALBUTEROL SO4 2.5/IPRATROPIUM 0.5 INH SOL 3 ML VIAL.NEB. NEB SCH (09:00)
[2018-03-17 09:18] VITALS: BP 124/76; PULSE 66; TEMP 96.4
[2018-03-17] MEDS: PRENATAL VITAMINS W/ FOLIC ACID TABLET (FP) PO SCH (10:01)
[2018-03-17] MEDS: RALTEGRAVIR POTASSIUM 400 MG TAB PO SCH (10:01)
[2018-03-17] MEDS: METHYLPHENIDATE HCL 5 MG TABLET PO SCH (10:01)
[2018-03-17] MEDS: BACITRACIN 0.9 GM PACKET TP SCH (10:01)
[2018-03-17] MEDS: BUDESONIDE/FORMETEROL FUMARATE 80/4.5 mcg INHALER IH SCH (10:02)
[2018-03-17] MEDS: BUPRENORPHINE/NALOXONE 8 MG/2 MG FILM PACKET SL SCH (10:02)
[2018-03-17] MEDS: diazePAM 5 MG TABLET PO SCH (10:02)
--- NOTE | 2018-03-17 11:27 | PN ---
[facility] Progress Note (SOAP) Subjective: PT DECLINED TO CONTINUE WITH DETOX. PT WAS ON THE PHONE WITH HIS OUT PT PROVIDER (S) THIS MORNING ABOUT HIS [facility] APPOINTMENT AND DECIDED HE WANTS TO LEAVE. STATED THEY WANT HIM TO COME IN A WALK IN NOW. PT IS DUE TO COMPLETE DETOX IN AM AND HE DECLINED REGULAR DISCHARGE PROTOCOL. Objective: 03/17/18 11:25 Vital Signs 03/17/18 03/17/18 03/17/18 03:30 06:11 06:30 Temperature 97.8 F Pulse Rate 62 Respiratory 18 18 18 Rate Blood Pressure 100/62 03/17/18 09:16 Temperature 96.4 F L Pulse Rate 66 Respiratory 18 Rate Blood Pressure 124/76 Laboratory Tests 03/14/18 03/15/18 03/15/18 Unknown 07:30 07:30 WBC 7.3 RBC 4.73 Hgb 14.3 Hct 42.8 MCV 90.5 MCH 30.3 MCHC 33.5 RDW 13.8 Plt Count 214 D MPV 9.3 Sodium 139 Potassium 4.3 Chloride 104 Carbon Dioxide 30 Anion Gap 5 L BUN 14 Creatinine 0.9 Creat Clearance w eGFR > 60 Random Glucose 92 D Calcium 8.4 L Total Bilirubin 0.4 AST 149 H D ALT 455 H D Alkaline Phosphatase 92 Total Protein 6.5 Albumin 3.5 Urine Color Yellow Urine Appearance Turbid Urine pH 5.0 Ur Specific [place] 1.028 Urine Protein Negative Urine Glucose (UA) Negative Urine Ketones Negative Urine Blood Negative Urine Nitrite Negative Urine Bilirubin Negative Urine Urobilinogen 2.0 Ur Leukocyte Esterase Trace Urine WBC (Auto) 29 Urine RBC (Auto) 2 Urine Bacteria Moderate Urine Mucus Few RPR Titer 03/15/18 07:30 WBC RBC Hgb Hct MCV MCH MCHC RDW Plt Count MPV Sodium Potassium Chloride Carbon Dioxide Anion Gap BUN Creatinine Creat Clearance w eGFR Random Glucose Calcium Total Bilirubin AST ALT Alkaline Phosphatase Total Protein Albumin Urine Color Urine Appearance Urine pH Ur Specific [place] Urine Protein Urine Glucose (UA) Urine Ketones Urine Blood Urine Nitrite Urine Bilirubin Urine Urobilinogen Ur Leukocyte Esterase Urine WBC (Auto) Urine RBC (Auto) Urine Bacteria Urine Mucus RPR Titer Nonreactive Assessment: 03/17/18 11:25 NAD Plan: PT SIGNED OUT AMA
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
[2018-03-18] MEDS ORDERED: diazePAM 5 MG TABLET PO SCH (10:00)
== END 2018-03-17 11:00 | disposition left against medical advice (07) | DRG 770 ==
LOC: YASAS 10:49 → Y3N 13:27
PROVIDERS: ADMIT Family Medicine Addiction Medicine; ATTEND Family Medicine Addiction Medicine
PROC: HZ2ZZZZ Detoxification Services for Substance Abuse Treatment (ICD-10-PCS; principal; 2018-03-14)
DX: F11.20 Opioid dependence, uncomplicated (principal); F10.230 Alcohol dependence with withdrawal, uncomplicated; F14.20 Cocaine dependence, uncomplicated; F12.20 Cannabis dependence, uncomplicated; F17.213 Nicotine dependence, cigarettes, with withdrawal; F42.9 Obsessive-compulsive disorder, unspecified; F98.8 Other specified behavioral and emotional disorders with onset usually occurring in childhood and adolescence; Z21 Asymptomatic human immunodeficiency virus [HIV] infection status; F19.280 Other psychoactive substance dependence with psychoactive substance-induced anxiety disorder; F19.282 Other psychoactive substance dependence with psychoactive substance-induced sleep disorder; B18.2 Chronic viral hepatitis C; M25.562 Pain in left knee; M25.561 Pain in right knee; J45.20 Mild intermittent asthma, uncomplicated; R76.11 Nonspecific reaction to tuberculin skin test without active tuberculosis; Z86.69 Personal history of other diseases of the nervous system and sense organs; Z87.828 Personal history of other (healed) physical injury and trauma
CPT/HCPCS: 36415; 80053; 81003; 81015; 85027; 86593; 93005; 93010; 94640

== ENCOUNTER 2021-04-17 00:56 | Inpatient (IN) | payer SELFPAY ==
[2021-04-17 01:18] VITALS: BMI 24.7
[2021-04-17] MEDS ORDERED: methaDONE HCL 10 MG TABLET (FOR DETOX USE ONLY) PO ONE (01:46)
[2021-04-17] MEDS ORDERED: ONDANSETRON *ODT* 4 MG TABLET SL PRN (01:46)
[2021-04-17] MEDS ORDERED: NICOTINE POLACRILEX 4 MG GUM BUC PRN (01:46)
[2021-04-17] MEDS ORDERED: MENTHOL/PHENOL 1 EACH UD MM PRN (01:46)
[2021-04-17] MEDS ORDERED: ACETAMINOPHEN 325 MG TABLET (FP) PO PRN ×2 (01:46)
[2021-04-17] MEDS ORDERED: MAG HYDROX/AL HYDROX/SIMETH 30 ML UNIT-DOSE CUP PO PRN (01:46)
[2021-04-17] MEDS ORDERED: NICOTINE POLACRILEX 2 MG GUM BUC PRN (01:46)
[2021-04-17] MEDS ORDERED: diazePAM 5 MG TABLET PO PRN (01:46)
[2021-04-17] MEDS ORDERED: METHOCARBAMOL 500 MG TABLET PO PRN (01:46)
[2021-04-17] MEDS ORDERED: cloNIDine HCL 0.1 MG TABLET PO PRN (01:46)
[2021-04-17] MEDS ORDERED: IBUPROFEN 400 MG TABLET (FP) PO PRN (01:46)
[2021-04-17] MEDS ORDERED: BISMUTH SUBSALICYLATE 524 MG/30 ML PO PRN (01:46)
[2021-04-17] MEDS ORDERED: MAGNESIUM HYDROX 2400MG/30ML ORAL SUSPENSION 30 ML CUP PO PRN (01:46)
[2021-04-17] MEDS ORDERED: MAGNESIUM CITRATE 300 ML BOTTLE PO PRN (01:46)
[2021-04-17] MEDS ORDERED: ALBUTEROL SO4 HFA INHALER IH PRN (01:51)
[2021-04-17] MEDS ORDERED: methaDONE HCL 10 MG TABLET (FOR DETOX USE ONLY) ONE (02:52)
[2021-04-17] MEDS ORDERED: hydrOXYzine PAMOATE 25 MG CAPSULE (FP) PO SCH (06:00)
[2021-04-17] MEDS: diazePAM 5 MG TABLET PO SCH ×4 (06:22→22:46)
[2021-04-17] MEDS ORDERED: hydrOXYzine PAMOATE 25 MG CAPSULE (FP) PO PRN (08:19)
[2021-04-17] MEDS ORDERED: NICOTINE 21 MG/24 HOURS TOPICAL PATCH TD SCH (10:00)
[2021-04-17] MEDS ORDERED: DEXTROAMPHETAMINE/AMPHETAMINE 10 MG CAP.ER.24H PO SCH (10:00)
[2021-04-17] MEDS ORDERED: PRENATAL VITAMINS W/ FOLIC ACID TABLET (FP) PO SCH (10:00)
[2021-04-17] MEDS ORDERED: EMTRICITABINE 200MG/TENOFOVIR 300MG PO SCH (10:00)
[2021-04-17 10:35] LABS: HEMATOCRIT 32.6 % (35.4-49); HEMOGLOBIN 10.5 GM/dL (11.7-16.9); MCH 23.7 pg (25.7-33.7); MCHC 32.3 g/dl (32.0-35.9); MEAN CELL VOLUME 73.4 fl (80-96); MEAN PLT VOLUME 7.5 fl (7.5-11.1); PLATELET COUNT 360 10^3/uL (134-434); RBC 4.44 M/mm3 (4.00-5.60); RDW 17.1 % (11.9-15.9); WHITE BLOOD COUNT 6.6 K/mm3 (4.0-10.0)
[2021-04-17 10:48] LABS: BLOOD UREA NITROGEN 16.9 mg/dL (7-18); CALCIUM 8.7 mg/dL (8.5-10.1)
[2021-04-17 10:51] LABS: CREATININE 0.7 mg/dL (0.55-1.3)
[2021-04-17 10:53] LABS: BILIRUBIN,TOTAL 0.6 mg/dL (0.2-1); TOT PROT 7.2 g/dl (6.4-8.2)
[2021-04-17 21:29] VITALS: BP 126/76; PULSE 79; TEMP 96.9
[2021-04-17] MEDS ORDERED: MELATONIN 5 MG TABLETS PO SCH (22:00)
[2021-04-17] MEDS ORDERED: THIAMINE HCL 100 MG TABLET (FP) PO SCH (22:00)
[2021-04-17] MEDS ORDERED: SUVOREXANT 10 MG TABLET PO PRN (22:00)
[2021-04-18] MEDS ORDERED: diazePAM 5 MG TABLET PO SCH (06:00)
[2021-04-19] MEDS ORDERED: diazePAM 5 MG TABLET PO SCH (06:00)
[2021-04-19] MEDS ORDERED: methaDONE HCL 10 MG TABLET (FOR DETOX USE ONLY) PO ONE (10:00)
[2021-04-20] MEDS ORDERED: diazePAM 5 MG TABLET PO ONE (06:00)
[2021-04-21] MEDS ORDERED: methaDONE HCL 10 MG TABLET (FOR DETOX USE ONLY) PO ONE (10:00)
== END 2021-04-18 00:16 | disposition left against medical advice (07) | DRG 770 ==
LOC: YASAS 00:56 → Y3N 01:47
PROVIDERS: ADMIT Allergy & Immunology; ATTEND Allergy & Immunology
PROC: HZ2ZZZZ Detoxification Services for Substance Abuse Treatment (ICD-10-PCS; principal; 2021-04-17)
DX: F11.23 Opioid dependence with withdrawal (principal); F10.20 Alcohol dependence, uncomplicated; F14.20 Cocaine dependence, uncomplicated; F12.20 Cannabis dependence, uncomplicated; F17.210 Nicotine dependence, cigarettes, uncomplicated; F19.282 Other psychoactive substance dependence with psychoactive substance-induced sleep disorder; F19.24 Other psychoactive substance dependence with psychoactive substance-induced mood disorder; F64.9 Gender identity disorder, unspecified; F42.9 Obsessive-compulsive disorder, unspecified; F43.10 Post-traumatic stress disorder, unspecified; F90.9 Attention-deficit hyperactivity disorder, unspecified type; Z21 Asymptomatic human immunodeficiency virus [HIV] infection status; J45.20 Mild intermittent asthma, uncomplicated; B18.2 Chronic viral hepatitis C; Z62.810 Personal history of physical and sexual abuse in childhood; Z91.410 Personal history of adult physical and sexual abuse; Z88.8 Allergy status to other drugs, medicaments and biological substances
CPT/HCPCS: 36415; 80053; 85027; 86780; C9803; U0003; U0005